=== PATIENT | male | born 1930 | race Caucasian/White ===

== ENCOUNTER 2017-06-11 21:36 | Inpatient (IN) | payer MEDICARE, OTHER ==
[~2017-06-11] VITALS: Ht 170.2 cm; Wt 61.7 kg
[2017-06-11 21:42] VITALS: BP 107/70; PULSE 74; RESP 16; TEMP 98.4; O2SAT 98
--- NOTE | 2017-06-11 21:50 | PD ---
HPI Chief Complaint: head injury Time Seen by Provider: 21:42 Travel History International Travel<30 days: No Contact w/Intl Traveler<30days: No History of Present Illness HPI The patient is an 87 year old male who presents to the [facility] emergency department with a history of reportedly tripping and falling on his back porch and striking his face on a hard object on the ground. He denies having a loss of consciousness. The patient reports having a headache and facial pain. The patient was seen at the emergency department in [place] after this occurred at approximately 5 PM. The patient had a workup done at that facility which revealed a left orbital fracture and an intracranial hemorrhage. The patient was accepted in transfer to this facility by the trauma surgeon, . The patient reports taking an aspirin daily and is also according to the record on Plavix. Otherwise on review of systems, the patient denies having any known recent fevers, cough, congestion, neck pain, chest pain , shortness of breath, abdominal pain, vomiting, diarrhea, urinary symptoms, or other neurologic symptoms. [facility] Past Medical History Narrative Medical The patient's past medical history is significant for coronary artery disease status post 4 prior stents being placed, history of hypothyroid disorder, hyperlipidemia, gout, thoracic aortic aneurysm, recurrent abdominal aortic aneurysm. Past Surgical History Narrative Surgical The patient's past surgical history is significant for jaw surgery related to osteomyelitis as a child, history of an abdominal aortic aneurysm repair, ventral hernia repair. Social History Alcohol Use: No Tobacco Use: No Substance Use: No Allergies-Medications (Allergen,Severity, Reaction): Coded Allergies: No Known Allergies (Unverified , 06/11/17) Reported Meds & Prescriptions Reported Meds & Active Scripts Active Reported Tamsulosin (Tamsulosin HCl) 0.4 Mg Cap 0.4 Mg PO HS Simvastatin 40 Mg Tab 40 Mg PO HS Levothyroxine (Levothyroxine Sodium) 25 Mcg Tab 25 Mcg PO DAILY Clopidogrel (Clopidogrel Bisulfate) 75 Mg Tab 75 Mg PO DAILY Aspirin 81 Mg Chew 81 Mg CHEW DAILY Allopurinol 100 Mg Tab 100 Mg PO DAILY Review of Systems Except as stated in HPI: all other systems reviewed are Neg General / Constitutional: No: Fever Eyes: No: Visual changes HENT: Positive: Headaches, No: Neck Stiffness, Neck Pain Cardiovascular: No: Chest Pain or Discomfort Respiratory: No: Shortness of Breath Gastrointestinal: No: Abdominal Pain Genitourinary: No: Dysuria Musculoskeletal: No: Pain Skin: No Rash Neurologic: Positive: Headache, No: Weakness, Focal Abnormalities, Change in Mentation, Slurred Speech, Sensory Disturbance Psychiatric: No: Depression Endocrine: No: Polydipsia Hematologic/Lymphatic: No: Easy Bruising Physical Exam Narrative General: The patient is a well-developed well-nourished male in no acute distress. Head and Neck exam: Head is has evident trauma with ecchymosis around the left eye and significant swelling noted. There is a bandage over the left restorationist. There is a small wound noted under the bandage that is oozing a small amount of blood. The pressure bandage was reapplied. Eyes: EOMI, pupils are equal round and reactive to light. The patient on examination of the left eye is noted to have a subconjunctival hemorrhage surrounding the eye. No hyphema. The patient has intact vision in the left eye. The patient's eye has to be manually opened elated to the edema. The patient has tenderness on palpation of the orbital bone. There is no crepitus or step-off or increased mobility of the other facial bones. Nose: Midline septum with pink mucous membranes Mouth: Dentition unremarkable. Moist mucus membranes. Posterior oropharynx is not erythematous. No tonsillar hypertrophy. Uvula midline. Airway patent. Neck: No palpable lymphadenopathy. No nuchal rigidity. No thyromegaly. Cardiovascular: Regular rate and rhythm without murmurs, gallops, or rubs. No pulse deficit to the extremities. Lungs: Clear to auscultation bilaterally. No wheezes, rhonchi, or rales. Abdomen: Soft, without tenderness to palpation in all 4 quadrants of the abdomen. No guarding, rebound, or rigidity. Negative [place] sign. Extremities: No clubbing, cyanosis, or edema. 2+ pulses in all 4 extremities. Back: No spinous process tenderness to palpation. No costovertebral angle tenderness to palpation. Neurologic Exam: Cranial nerves 2-12 were intact on exam. Strength is 5/5 in all 4 extremities. No sensory deficits noted. Skin Exam: No rash noted. Intact skin that is warm and dry. Data Data Last Documented VS Vital Signs Date Time Temp Pulse Resp B/P (MAP) Pulse Ox O2 Delivery O2 Flow Rate FiO2 1/23/18 21:42 98.4 74 16 107/70 (82) 98 Orders Orders Admit Order (Ed Use Only) (06/11/17 21:59) Consult Neurosurgery (06/11/17 ) Consult Oral, Facial Surgery (06/11/17 ) MDM Medical Decision Making Medical Screen Exam Complete: Yes Emergency Medical Condition: Yes Medical Record Reviewed: Yes Differential Diagnosis Intracranial hemorrhage, versus facial fracture. Narrative Course During the course of the patients emergency department visit, the patients history, examination, and differential diagnosis were reviewed with the patient. The patient was placed on a cardiac care unit nurse with oximetry and frequent blood pressure monitoring. The patient had IV access obtained and blood work sent for analysis. The patient was provided an update to his tetanus at the other facility. The patients laboratory studies were reviewed from the other facility and remarkable for a white count of 10.9, hemoglobin 13.1, platelets 150 with neutrophils 87.4, lymphocytes 6.7, PT 11.7, INR 1.12, PTT 25.9. Alkaline phosphatase 107, AST 24, ALT 16, total bilirubin 0.5, serum osmolality 286, sodium 146, potassium 4.1, chloride 110, anion gap 12, CO2 24, glucose 111, BUN 23, creatinine 1.1. Radiology studies were reviewed from the other facility and remarkable for a CT scan of the brain that shows scattered subarachnoid hemorrhage, parenchymal hematoma within the left frontal lobe that is approximately 2 x 2 by 1.5 cm. No midline shift or herniation, no acute infarct appreciated area didn't sided tripod fracture noted, chest x-ray shows congestive heart failure with bilateral effusions, no other sequela from trauma left elbow x-ray shows no acute fracture, moderate elbow joint degenerative disease. Maxillofacial CT reveals an impacted left tripod fracture, small subperiosteal hematoma along the lateral wall of the left orbit with mild mass effect upon the intraconal contents. Extensive contusion with hemorrhage within the left face, postsurgical changes with reconstruction of the mandible. The patients results were discussed with the patient, including the plan of care. I explained that further testing and/ or monitoring is indicated based on the patients history, examination, and/ or laboratory findings. Therefore, I recommended admission for additional evaluation. The patient expressed understanding and was agreeable with this plan. The patient was admitted to the hospital in guarded condition and sent to a bed under the care of the trauma surgeon. Physician Communication Physician Communication The patient's case including history, pertinent physical examination findings, and laboratory studies were discussed with Dr. Mosqueda. It was agreed that the patient would be admitted to the trauma service. He requested that I put in a courtesy consultation to the neurosurgeon and the maxillofacial surgeon regarding this patient's injuries. Diagnosis Primary Impression: Intracranial hemorrhage Additional Impressions: Left orbit fracture Subconjunctival hemorrhage of left eye Admitting Information Admitting Physician Requests: Admit Anne Goldsmith MD Jun 11, 2017 21:50
[2017-06-11] MEDS ORDERED: ALLO100T PO (22:37)
[2017-06-11] MEDS ORDERED: LEVO25TA4 PO (22:37)
[2017-06-11] MEDS ORDERED: SIMV40TA PO (22:37)
[2017-06-11] MEDS ORDERED: TAMS0.4C4 PO (22:37)
[2017-06-11] MEDS ORDERED: CLOP75TA PO (22:37)
[2017-06-11] MEDS ORDERED: ASPI-516 CHEW (22:37)
[2017-06-11] MEDS ORDERED: CALC500C16 CHEW (22:37)
[2017-06-12] VITALS (12 sets, daily range): BP systolic 101–112; BP diastolic 55–74; PULSE 66–82; RESP 15–30; TEMP 97.5–98.1; O2SAT 98–100
[2017-06-12] MEDS ORDERED: SODIUM CHLOR 0.9% 1000 ML INJ 1,000 ML IV SCH (02:27)
[2017-06-12] MEDS ORDERED: Post-op Orders (for Pharmacy) XX ONE (02:30)
[2017-06-12] MEDS ORDERED: ONDANSETRON HCL 4 MG/2 ML VIAL IV PUSH PRN (02:30)
[2017-06-12] MEDS ORDERED: oxyCODONE/ACETAMINOPHEN 5 MG/325 MG TAB PO PRN (02:30)
[2017-06-12] MEDS ORDERED: NALOXONE HCL 0.4 MG/ML AMP IV PUSH PRN (02:30)
[2017-06-12] MEDS ORDERED: SODIUM CHLORIDE 0.9% FLUSH 10 ML FLUSH IV FLUSH PRN (02:30)
[2017-06-12] MEDS: LEVOTHYROXINE SODIUM 25 MCG TAB PO SCH (05:15)
[2017-06-12] MEDS: PANTOPRAZOLE SOD 40 MG DELAYED RELEASE TAB PO SCH (05:15)
--- NOTE | 2017-06-12 05:43 | MH ---
cc: MENDOZA WEINSTEIN MD DATE OF ADMISSION: 06/11/[address] Weinstein DIAGNOSIS Fall. Intracranial hemorrhage. HISTORY OF PRESENT DISEASE This 87-year-old gentleman who is awake and alert apparently tripped and fell on his porch striking his face on the ground. He denies losing consciousness, remembers the accident. He was transferred to [facility] around 05:00 p.m. He was worked up there, was found to have orbital fracture and intracranial hemorrhage. We were asked by that hospital to accept the patient which was readily done. The request, however, was made late, about 10 o'clock in the evening. I do not know what they did for five hours over there. PAST MEDICAL HISTORY 1. Coronary artery disease and angioplasty with stent placements about a year ago. 2. Hypothyroidism. 3. Hyperlipidemia. 4. Gout. 5. Thoracic aortic and abdominal aortic aneurysm. SURGICAL HISTORY 1. Abdominal aortic aneurysm repair. 2. Ventral hernia repair. MEDICATIONS Can be found on the record, include - 1. Plavix. 2. Aspirin. 3. Allopurinol. 4. Simvastatin. It should be noted that I am not sure what type of stent the patient had placed, if it was a bare metal stent or coated one. PHYSICAL EXAMINATION GENERAL: An 87-year-old male with in no acute distress. HEAD: Normocephalic. Trauma to the head consisting of periorbital swelling over the left side of the face and some wound noted in the yazidi on the left side. EYES: Pupils equally reactive. Extraocular muscles are intact. Left eye has some subconjunctival hemorrhage. Vision is intact. Hyphema is negative. NOSE: No sign of trauma to the nose. OROPHARYNX: Partially edentulous. NECK: Bilateral carotid pulses. No bruits. No signs of trauma to the neck. CHEST: Bilateral breath sounds. HEART: Regular rhythm. ABDOMEN: Soft. Active bowel sounds. EXTREMITIES: Within normal limits. NEUROLOGIC EXAMINATION: Cranial nerves are normal. Motorically the patient is fully intact. Sensory intact. Alexandra coma scale is 15. IMPRESSION Patient with fall, left-sided facial fractures contained to the zygoma, orbit and intracranial hemorrhage. PLAN The patient will be admitted, watched. Neurosurgeon and Plastic Surgery are consulted. [place] LUNDY/SAMARA /3:23 AM /5:28 AM
--- NOTE | 2017-06-12 09:29 | PD.CONS ---
History of Present Illness Service Neurosurgery Consult Requested By General surgery trauma service Reason for Consult Traumatic brain injury Primary Care Physician Alice Dumont D.O. Diagnoses: History of Present Illness 87-year-old male transferred from [facility] today after presenting there at approximately 5 in the morning following a fall at home. The patient states that he tripped and fell. No definite loss of consciousness prior to or following the fall. No complete or dizziness or vertigo. Mild headache. Moderate left facial pain No blurred vision or diplopia No complaint of significant neck or back pain. No weakness numbness of the extremities. Review of Systems Constitutional: DENIES: Fever, Change in appetite Eyes: DENIES: Blurred vision, Diplopia Ears, nose, mouth, throat: COMPLAINS OF: Hearing loss, DENIES: Vertigo Respiratory: DENIES: Shortness of breath Cardiovascular: DENIES: Chest pain, Palpitations, Syncope Gastrointestinal: DENIES: Abdominal pain, Nausea, Vomiting Musculoskeletal: COMPLAINS OF: Joint pain, Muscle aches, DENIES: Back pain, Neck pain Hematologic/lymphatic: DENIES: Bruising Neurologic: DENIES: Abnormal gait Psychiatric: DENIES: Confusion Past Family Social History Allergies: Coded Allergies: No Known Allergies (Unverified , 06/11/17) Past Medical History Coronary artery disease Lindsay aortic aneurysm Hypothyroidism Dyslipidemia Past Surgical History Coronary stent Aortic aneurysm repair Reported Medications Reported Meds & Active Scripts Active Reported Tamsulosin (Tamsulosin HCl) 0.4 Mg Cap 0.4 Mg PO HS Simvastatin 40 Mg Tab 40 Mg PO HS Levothyroxine (Levothyroxine Sodium) 25 Mcg Tab 25 Mcg PO DAILY Clopidogrel (Clopidogrel Bisulfate) 75 Mg Tab 75 Mg PO DAILY Aspirin 81 Mg Chew 81 Mg CHEW DAILY Allopurinol 100 Mg Tab 100 Mg PO DAILY Family History Negative cardiac, neurologic disease Social History Does not smoke or drink alcohol. Physical Exam Vital Signs Vital Signs Date Time Temp Pulse Resp B/P (MAP) Pulse Ox O2 Delivery O2 Flow Rate FiO2 06/12/17 08:00 73 06/12/17 07:00 99 Room Air 06/12/17 06:00 82 06/12/17 04:00 76 06/12/17 04:00 97.5 76 22 101/65 (77) 99 06/12/17 02:00 80 06/12/17 00:00 76 06/12/17 00:00 97.5 76 15 112/74 (87) 100 06/11/17 21:42 98.4 74 16 107/70 (82) 98 Physical Exam GENERAL: This is a well-nourished, well-developed patient, no apparent distress. SKIN: No abrasions, contusion, rash noted. Skin warm and dry. HEAD: Positive left facial and temporal ecchymosis, small laceration EYES: Sclerae are clear and nonicteric ENT: Ecchymosis over the left side of the face. Left periorbital edema. Mild conjunctival ecchymosis NECK: Trachea midline. No cervical spine tenderness. CARDIOVASCULAR: Regular rate and rhythm without murmurs, gallops, or rubs. RESPIRATORY: Clear to auscultation. Breath sounds equal bilaterally. No wheezes , rales, or rhonchi. GASTROINTESTINAL: Abdomen soft, non-tender, nondistended. No hepato-splenomegaly , or palpable masses. No guarding. MUSCULOSKELETAL: Extremities without cyanosis, or edema. No joint tenderness, or edema noted. No calf tenderness. Dorsalis pedis pulses 2+ bilateral NEUROLOGICAL: Awake and alert Oriented X 3 Speech is clear Conversant and appropriate Follow simple commands well Answers questions appropriately Reasonable judgment and insight Recent and remote memory are intact No evidence of anxiety or depression Pupils are equal and reactive to accommodation. Extra-ocular movements, visual ortega to confrontation, facial sensorimotor, tongue, palate, sternocleidomastoid testing, hearing to finger rub testing, and bilateral shoulder shrug are all intact. Sensation is intact to light touch in all extremities Strength normal major flexion and extension groups all extremities Jennifer's absent bilaterally No ankle clonus Plantar responses absent bilateral Fine motor movements intact upper extremities Laboratory Laboratory Tests Test 06/11/17 23:20 Nasal Screen MRSA (PCR) MRSA NOT DETECTED Imaging Patient's imaging study from [facility] reveals approximately 2 x 4 cm left frontal parenchymal intracranial hemorrhage. No significant mass effect. No skull fracture ,pneumocephalus ,hydrocephalus. Assessment and Plan Assessment and Plan Impression: Traumatic brain injury Left Facial fracture, contusion Plan ISC F/U CT Head Monitor Na+ Ulcer prophylaxis Non- Chemical DVT prophylaxis Jaylen Novak MD Jun 12, 2017 09:29
--- NOTE | 2017-06-12 10:42 | RADRPT ---
EXAM DATE/TIME: 06/12/2017 10:19 [facility] COMPARISON: No previous studies available for comparison. INDICATIONS : Pulmonary effusion. MEDICAL HISTORY : None. SURGICAL HISTORY : None. ENCOUNTER: Initial ACUITY: 1 day PAIN SCORE: 0/10 LOCATION: chest FINDINGS: A single view of the chest demonstrates minimal bibasilar densities. Heart normal in size. Stent cassandra t descending thoracic aorta. Right lung better aerated on current study.. Osseous structures are int act. CONCLUSION: 1. Bibasilar densities likely small pleural effusions and adjacent atelectasis. Frank Hernandez MD on June 12, 2017 at 10:38 Board Certified Radiologist. This report was verified electronically.
[2017-06-12] MEDS: ALLOPURINOL 100 MG TAB PO SCH (10:50)
[2017-06-12] MEDS: levETIRAcetam 500 MG TAB PO SCH ×2 (10:51→20:38)
[2017-06-12] MEDS: DOCUSATE SODIUM 100 MG CAP PO SCH ×2 (11:00→21:00)
[2017-06-12] MEDS: SODIUM CHLORIDE 0.9% FLUSH 10 ML FLUSH IV FLUSH SCH ×2 (11:00→20:38)
--- NOTE | 2017-06-12 12:52 | PD.HHIRBSE ---
Patient History Record/History Review Reason for Referral: The patient is a 87 year old right handed male status post traumatic brain injury secondary to a fall sustained on 06/11/2017. The patient fell at his home , and reported no LOC. Additional injuries included fractured orbit and ICH. Ths patient has a history of CAD, and hypothyroidism. He was GCS of 15 on admission. He is referred for baseline neurobehavioral status examination per trauma protocol to assess cognitive, behavioral and emotional aspects of the injury and to provide treatment recommendations. Past Surgical/Medical History Past Surgery: Yes Major surgery in last 100 days: Unknown Hx Anesthesia Reactions: No Hx Orthopedic Surgery: No Hx Cardiac Surgery: Yes (stent 2016) Hx Chest Surgery: Yes (2004) Hx Abdominal Surgery: Yes (aneurysm (never repaired)) Hx Genitourinary Surgery: No Hx Endocrine Surgery: No Hx Eye Surgery: Yes (L eye) Hx Ear Surgery: No Hx Oral Surgery: Yes (jaw) History of Transplant: No Hx of Neuro Prob: No Hx of Musculoskeletal Pro: Yes (gout) Hx Arthritis: Yes Hx of Cardiovascular Prob: Yes Hypertension (High Blood Press: No Hx Clotting Problems: No Venous Thromboembolism Present: No Hx Chest Pain: No Hx Lightheadedness: No Hx Congestive Heart Failure: No Syncope (Fainting): No Hx of Respiratory Problem: No Hx Snoring: Yes Hx of GI Problems: Yes Hx Heartburn: No Hx Gastroesophageal Reflux: No Hx Hiatal Hernia: No Hx Ulcer: Yes Hx Liver Disease: No Hx Gallbladder Disease: No Hx Inflammatory Bowel Disease: No Hx of Problems: No Hx of Immuno Disor: No Hx of Endocrine Problems: No Hx Thyroid Disease: Yes Hx of Eye Probl: Yes (cataracts removed) Hx of Cataracts: Bilateral Hx of Hearing or Ear Problems: Yes Hard of Hearing: Bilateral Hx Dental Problems: Yes (no teeth or dentures) Hx Psychiatric Problems: No Hx Blood Dyscrasias: No Hx of MDRO: No Hx of MRSA: No Hx of VRE: No Hx of CDIFF: No Hx of Tuberculosis: No If No, Have You Been Exposed W: No Hx of Body/Medical Devices: No Blood Transfusion History Will receive Blood /Blood prod: Yes Hx Blood Transfusions: No Medication Active Medications Allopurinol (Zyloprim) 100 mg DAILY PO Last administered on 06/12/17at 10:50; Admin Dose 100 MG; Start 06/12/17 at 09:00 Docusate Sodium (Colace) 100 mg BID PO Last administered on 06/12/17at 11:00; Admin Dose 100 MG; Start 06/12/17 at 09:00 Levetriacetam (Keppra) 500 mg Q12HR PO Last administered on 06/12/17at 10:51; Admin Dose 500 MG; Start 06/12/17 at 09:00 Levothyroxine Sodium (Synthroid) 25 mcg DAILY@0700 PO Last administered on at 05:15; Admin Dose 25 MCG; Start 06/12/17 at 07:00 Miscellaneous Information (Post-op Orders (for Pharmacy)) STAT ONCE XX; Start 06/12/17 at 02:30; Stop 06/12/17 at 02:52; Status DC Naloxone HCl (Narcan Inj) 0.4 mg UNSCH PRN IV PUSH; Start 06/12/17 at 02:30 Ondansetron HCl (Zofran Inj) 4 mg Q6H PRN IV PUSH; Start 06/12/17 at 02:30 Oxycodone/ Acetaminophen (Percocet 5-325 Mg) 1 tab Q6H PRN PO; Start 06/12/17 at 02:30 Pantoprazole Sodium (Protonix) 40 mg Q24H PO Last administered on 06/12/17at 05: 15; Admin Dose 40 MG; Start 06/12/17 at 06:00 Pravastatin Sodium (Pravachol) 80 mg HS PO; Start 06/12/17 at 21:00 Sodium Chloride 1,000 ml @ 80 mls/hr [id number] IV Last administered on 06/12/17at 02:27; Admin Dose 80 MLS/HR; Start 06/12/17 at 02:27; Stop 06/12/17 at 10:08; Status DC Sodium Chloride (NS Flush) 2 ml BID IV FLUSH Last administered on 06/12/17at 11: 00; Admin Dose 2 ML; Start 06/12/17 at 09:00 Sodium Chloride (NS Flush) 2 ml UNSCH PRN IV FLUSH; Start 06/12/17 at 02:30 Tamsulosin HCl (Flomax) 0.4 mg HS PO; Start 06/12/17 at 21:00 Mental Status Assessment Orientation: oriented to Self, oriented to Place, oriented to Situation, disoriented to Time Mental Status: WFL: Language/Interactions, Problem-Solving, Impaired: Thought processing, Attention, Learning/Memory Observation The patient is alert and oriented to person, place, and circumstances surrounding the reason for hospitalization, but he was off in terms of temporal orientation. In terms of attention skills, the patient was able to remain on task and remember basic but not consistently complex instructions. In terms of memory functioning, the patient was able to demonstrate some carryover of information after a brief period of time. The patient initiated spontaneous conversation. Speech was characterized by adequate prosody, grammar, and articulation, but low volume and slowed rate. Basic naming skills were intact. Language repetition skills were deferred. The patients comprehensions for basic one- and two-stage commands were intact. Basic verbal abstraction and problem-solving skills were deferred. The patient appears to posses some insight and awareness into their situation and within the limits of this brief evaluation, basic judgment. Adjustment/Coping Assessment Adjustment/Coping: Mild: Awareness, Insight Observation The patients thought content was free from suicidal, homicidal or paranoid ideation, and the patients thought processes were bradyphrenic. The patients mood was euthymic, and the affect was stable and appropriate. LTG Status: Deferred STG Status: Deferred Team Members: Neuropsychologist Behavior Assessment Agitation: None Treatment Engagement: Average Observation Behaviorally, the patient demonstrated no signs of agitation, impulsivity or disinhibition. There was no remarkable evidence of a formal thought disorder or psychosis. LTG - Status: Deferred STG Status: Deferred Team Members: Neuropsychologist Diagnosis/Discharge Plan Impression This 87 year old man is s/p complicated mild TBI 2T fall on 06/11/2017. His reports an underlying developing neurocognitive disorder that predated his injury. Diagnosis: (1) Mild major neurocognitive disorder due to traumatic brain injury with behavioral disturbance [facility] Level: :Confused-appropriate Maximizing acute care outcome It is recommended that the patient be monitored for emergent behavioral impulsivity as the medical condition evolves. This patients neuropathological challenges may limit his rehabilitation potential going forward, and these challenges will require specialized therapeutic skills to maximize outcome. At this point in the recovery process, the patient does have basic cognitive capacity as the patient is able to understand a situation and its likely consequences, and he is able to manipulate information rationally. Cognitive capacity will be assessed throughout the recovery process. Discharge Planning Anticipated Problems Ongoing areas of concern will include behavioral impulsivity, lack of insight and judgment, which is expected to improve with time and treatment. Presently , the patient is following multistep commands. Treatment Plan This clinician will continue to follow with you throughout the course of this patients acute care treatment, and I will be available to meet with the patient s family/support system to facilitate their understanding and the ongoing care of their family member. The goals of neuropsychological intervention shall be both educational and supportive to the family/support system as is deemed clinically appropriate. Thank you Thank you for the opportunity to assist in this patients care. Greg Funk, Ph.D., ABPP Board Certified in Clinical Neuropsychology [place] [employer] [place] Licensed Psychologist #[id number] Greg Funk PhD Jun 12, 2017 12:52
--- NOTE | 2017-06-12 12:55 | MB ---
cc: ANN BAHENA DMD DATE OF CONSULTATION 06/12/2017 REASON FOR CONSULTATION Orbital/facial fractures. HISTORY OF PRESENT ILLNESS This is an 87-year-old male who tripped and fell on his porch. I have seen and examined him this morning. His is at bedside. He is alert, awake and oriented x3 in no acute distress. He was transferred to [facility] yesterday evening and then he was transferred over here to [facility]. He was sent up here with a history of having an intracranial hemorrhage an orbital fracture. Denies any fever, chills, nausea, or vomiting, any shortness of breath, any difficulty breathing or swallowing. Denies any visual problems. PAST MEDICAL HISTORY Reports: 1. High cholesterol 2. Hypothyroidism 3. Aortic aneurysm 4. Coronary artery disease PAST SURGICAL HISTORY 1. Angioplasty with stent placement a year ago. 2. Abdominal aortic aneurysm repair MEDICATIONS As per report. 1. Plavix elevator all. 2. Allopurinol 3. Aspirin 4. Simvastatin PHYSICAL EXAM VITAL SIGNS: Temperature 97.6, pulse is 57, respiration rate 24, blood pressure is 111/62 with oxygen saturation of 98. HEAD, EYES, EARS, NOSE, AND THROAT: Pupils equal, round, and reactive to light and accommodation. Extraocular movements are intact. He has left periorbital edema and ecchymosis. I am able to gently open up the eye. Good positive visual acuity. No entrapment noted. He has got some left subconjunctival hemorrhage that is noted. Minimal ecchymosis. Removing the dressing on the left forehead, he has got some abrasions on the temporal region on the left side, but it was hemostatic and stable. Facial bones and nasal bones have been palpated. No crepitus noted. No gross tenderness to palpation. Left-sided V2 paresthesia is noted. Intraorally, no false point of motion of the maxilla or the mandible. Wears dentures. Tissues pink and well-perfused. No active heme that is noted. Positive range of movement of the neck. No tenderness noted. CT scan of the facial bones shows a mildly displaced fracture, with a minimally left CMC fracture, minimally displaced left maxillary sinus fracture, minimally displaced left orbital floor fracture. He also has a remodeling of the left condyle that is noted. Also appears to have some bony fragments/on the right inferior border of the mandible. Many questions about that. The patient's reports that he has had a cartilage/bone transfer when he was at the age of [age]. The mandible is stable. I am able to feel any loose bony pieces. LABORATORY DATA None done in the hospital. IMPRESSION AND PLAN This is an 87-year-old male status post trip and fall with a minimally to mildly displaced left sided zygomatic maxillary complex fracture, maxillary sinus fracture minimally displaced, left orbital floor fracture minimally displaced. Air/fluid in the left maxillary sinus. No surgical intervention needed from oral maxillofacial surgery at this standpoint. Advised the patient to be on sinus precautions, ice to the left side of the face 20 minutes on, 20 minutes off. The patient to follow up in our office in one week, leave the dentures out. He can be on a mechanically soft diet. As far as the right inferior border of the mandible, the right side, the bony segments are the grafting sites of cartilage and bone is stable. Tissues are pink and well-perfused. Intraorally, no infection or anything noted intraorally. No heme noted. No edema noted. The patient is opening and closing his mouth. Good range of movement. No tenderness. No discomfort. At this point, there is no surgical intervention needed. Maxillary is signing off, recall as required. Ann Bahena DMD RRT/ELIANE /11:32 AM /12:27 PM
[2017-06-12] MEDS ORDERED: ACETAMINOPHEN 325 MG TAB PO PRN (13:00)
--- NOTE | 2017-06-12 16:04 | HHI.CCPN ---
Subjective Brief History This 87-year-old gentleman who is awake and alert apparently tripped and fell on his porch striking his face on the ground. He denies losing consciousness, remembers the accident. He was transferred to [facility] around 05:00 p.m. He was worked up there, was found to have orbital fracture and intracranial hemorrhage. We were asked by that hospital to accept the patient which was readily done. The request, however, was made late, about 10 o'clock in the evening. I do not know what they did for [address] scan reveals some interparenchymal hemorrhage the patient is awake alert and neurologically fully intact In addition he has a tripod fracture on the left with swelling of the face 24 Hour Review/Hospital Course 06/12/17 Patient been stable since the arrival He is neurologically fully intact There is no injury to the eye other than some bleeding around the sclera and patient has preserved vision Oral maxillofacial surgery has evaluated the patient and deemed this not to be an operative fracture Neurosurgery consult is greatly appreciated in patient with we will watch carefully Hemodynamically stable Last year patient had 2 cardiac stents placed. I do not know if these a bare metal stents are drug-eluting stents. He is on Plavix and aspirin Current the requirement is that patients with bare metal stents remain on Plavix and aspirin for at least 6 weeks after the procedure and those with the drug-eluting stents for about a year or longer At this point patient is off Plavix and aspirin the face of his intracranial bleed and we have to make certain compromise on this with risk versus benefit from intracranial hemorrhage versus cardiac event And is below point I believe the best way to go is to leave patient off Plavix for about 48-72 hours and then restarted provided that the intracranial hemorrhage is shrinking and improving Abdomen is soft patient's tolerating diet After the CT scan of the brain is repeated will probably transfer patient to the floor provided there is no surprise there Objective Vital Signs Date Time Temp Pulse Resp B/P (MAP) Pulse Ox O2 Delivery O2 Flow Rate FiO2 06/12/17 12:00 68 06/12/17 12:00 98.0 21 110/68 (82) 99 06/12/17 07:00 Room Air Intake and Output 06/12/17 06/12/17 06/13/17 08:00 16:00 00:00 Intake Total 100 ml 662 ml Output Total 200 ml 200 ml Balance -100 ml 462 ml Imaging Last 24 hours Impressions Chest X-Ray 06/12/17 0000 Signed Impressions: Service Date/Time: Monday, June 12, 2017 10:19 - CONCLUSION: 1. Bibasilar densities likely small pleural effusions and adjacent atelectasis. Frank Hernandez MD Exam [employer] He is neurologically fully intact Alexandra Coma Scale is 15 Motoric with patient is fully intact There is no injury to the eye other than some bleeding around the sclera and patient has preserved vision Oral maxillofacial surgery has evaluated the patient and deemed this not to be an operative fracture Neurosurgery consult is greatly appreciated in patient with we will watch carefully Hemodynamic/Cardiac Hemodynamically stable Last year patient had 2 cardiac stents placed. I do not know if these a bare metal stents are drug-eluting stents. He is on Plavix and aspirin Current the requirement is that patients with bare metal stents remain on Plavix and aspirin for at least 6 weeks after the procedure and those with the drug-eluting stents for about a year or longer At this point patient is off Plavix and aspirin the face of his intracranial bleed and we have to make certain compromise on this with risk versus benefit from intracranial hemorrhage versus cardiac event At this point I believe the best way to go is to leave patient off Plavix for about 48-72 hours and then restarted provided that the intracranial hemorrhage is shrinking and improving Pulmonary/Respiratory Bilateral breath sounds with moderate degree of COPD and pulmonary cachexia Patient is clearly in a functional decline at this point despite the fact that he has reached advanced stage and has been functioning very well Abdomen/GI Nutrition Abdomen is soft no injuries noted Renal/I&O Renal function preserved Assessment and Plan Attestation Critical care time 34 minutes Urbano Mosqueda MD Jun 12, 2017 16:04
--- NOTE | 2017-06-12 18:24 | RADRPT ---
EXAM DATE/TIME: 06/12/2017 18:08 [place] COMPARISON: No previous studies available for comparison. INDICATIONS : Evaluate hemorrhage; cephalgia. RADIATION DOSE: 39.95 CTDIvol (mGy) MEDICAL HISTORY : Cardiovascular disease. SURGICAL HISTORY : None. ENCOUNTER: Initial ACUITY: 1 day PAIN SCALE: 3/10 LOCATION: cranial TECHNIQUE: Multiple contiguous axial images were obtained of the head. Using automated exposure control and adj ustment of the mA and/or kV according to patient size, radiation dose was kept as low as reasonably a chievable to obtain optimal diagnostic quality images. DICOM format image data is available electro nically for review and comparison. FINDINGS: There is an outside study from June 11. We had trouble loading the study and I was only able to vi sualize one image. On the current exam is a 4 cm x 2 cm acute hemorrhage in the superior left frontal lobe which I believe is slightly larger than the examination performed yesterday. There is some surr ounding edema and minimal localized mass effect. There is also a small amount of hemorrhage over the left convexity and in the sylvian fissure and a small hemorrhage in the left basal ganglia and left t emporal lobe, subcentimeter. I did not see this area on the previous study. There are fractures of the left maxillary sinus and left zygomatic arch with opacification of the lef t maxillary sinus. Remote fracture left mandibular head. CONCLUSION: 1. 4 cm x 2 cm hemorrhage left frontal lobe probably slightly larger than on June 11. See above di scussion. There is also some hemorrhage over both convexities and in the left sylvian fissure. Probab le small hemorrhage in the left basal ganglia and left temporal lobe, subcentimeter. 2. Left sided facial fractures as above. Ever Parra MD on June 12, 2017 at 18:17 Board Certified Radiologist. This report was verified electronically.
[2017-06-12] MEDS: PRAVASTATIN SOD 40 MG TAB PO SCH (20:38)
[2017-06-12] MEDS: TAMSULOSIN HCL 0.4 MG CAP PO SCH (21:00)
[2017-06-13] VITALS (12 sets, daily range): BP systolic 116–131; BP diastolic 60–76; PULSE 56–109; RESP 16–32; TEMP 97.2–98.7; O2SAT 81–100
[2017-06-13 05:21] LABS: AUTOMATED NEUTROPHIL # 8.4 TH/MM3 (1.8-7.7); BASOPHIL % 0.4 % (0.0-2.0); EOSINOPHIL % 0.4 % (0.0-4.0); HEMATOCRIT 29.9 % (39.0-51.0); HEMOGLOBIN 10.4 GM/DL (13.0-17.0); LYMPH % 9.4 % (9.0-44.0); LYMPHOCYTE # 0.9 TH/MM3 (1.0-4.8); MEAN CELL VOLUME 97.9 FL (80.0-100.0); MEAN CORPUSCULAR HGB CONC 34.7 % (32.0-36.0); MEAN PLATELET VOLUME 8.1 FL (7.0-11.0); MONO % 6.1 % (0.0-8.0); MONOCYTE # 0.6 TH/MM3 (0-0.9); NEUT % 83.7 % (16.0-70.0); PLATELET COUNT 114 TH/MM3 (150-450); RED BLOOD COUNT 3.05 MIL/MM3 (4.50-5.90); RED CELL DISTRIBUTION WIDTH 15.7 % (11.6-17.2)
[2017-06-13 05:44] LABS: BICARBONATE 24.2 MEQ/L (21.0-32.0); CALCIUM 7.8 MG/DL (8.5-10.1); CREATININE 1.12 MG/DL (0.60-1.30)
[2017-06-13] MEDS: PANTOPRAZOLE SOD 40 MG DELAYED RELEASE TAB PO SCH (06:00)
[2017-06-13] MEDS: LEVOTHYROXINE SODIUM 25 MCG TAB PO SCH (06:57)
--- NOTE | 2017-06-13 08:08 | HHI.PR ---
Neuropsych Behavior Behavior: Intact: Impulsive/Agitated Cognitive Cognitive: Mild: Cognitive, Attention/Concentration, Confused/Orientation, Insight/Awareness, Judgement/Problem-Solving, Memory Psychosocial Psychosocial: Intact: Psychosocial, Family/Other Adjustment, Realistic Expectation, Unable to Asses: Self-Esteem/Confidence Progress Notes/Response to Tx Contents of Sessions: Adjustment, Level of Consciousness Time with Patient: 15 minutes Premorbid psychological status Premorbid Cognitive, Emotional and Behavioral Status: Stable. The patient has six years of education and a solid work history prior to this injury. The patient has no prior psychiatric difficulties, as described above. However, there is a concern about an underlying neurocognitive disorder predating his injury. Substance abuse history is unremarkable. Behavioral Reactions of Patient and Family/Support System: Stable. The patient s family is experiencing ongoing issues of adjustment given the nature of the injury, and this aspect of recovery will require ongoing monitoring. Emotional/Behavioral Status of Patient and Family/Support System: Stable. Pertinent issues, if appropriate to this patients clinical care, are described in detail above. Maximizing acute care outcome It is recommended that the patient be monitored for emergent behavioral impulsivity as the medical condition evolves. This patients neuropathological challenges may limit his rehabilitation potential going forward, and these challenges will require specialized therapeutic skills to maximize outcome. At this point in the recovery process, the patient does have basic cognitive capacity as the patient is able to understand a situation and its likely consequences, and he is able to manipulate information rationally. Cognitive capacity will be assessed throughout the recovery process. Anticipated Problems Ongoing areas of concern will include behavioral impulsivity, lack of insight and judgment, which is expected to improve with time and treatment. Presently , the patient is following multistep commands. Treatment Plan This clinician will continue to follow with you throughout the course of this patients acute care treatment, and I will be available to meet with the patient s family/support system to facilitate their understanding and the ongoing care of their family member. The goals of neuropsychological intervention shall be both educational and supportive to the family/support system as is deemed clinically appropriate. [facility] Level: V:Confused-non agitated Impression This 87 year old man is s/p complicated mild TBI 2T fall on 06/11/2017. His reports an underlying developing neurocognitive disorder that predated his injury. Diagnosis: (1) Mild major neurocognitive disorder due to traumatic brain injury with behavioral disturbance Progress Note Narrative Ongoing follow-up of patient seen during daily trauma rounds. This is day 2 post injury. The patient is stable, no neurobehavioral issues. Provided educational information to concerning TBI and subsequent recovery. The patient is [place] I will continue to follow. Greg Funk PhD Jun 13, 2017 8:07 am
[2017-06-13] MEDS: ALLOPURINOL 100 MG TAB PO SCH (08:19)
[2017-06-13] MEDS: SODIUM CHLORIDE 0.9% FLUSH 10 ML FLUSH IV FLUSH SCH ×2 (08:19→20:42)
[2017-06-13] MEDS: DOCUSATE SODIUM 100 MG CAP PO SCH ×2 (08:19→20:42)
[2017-06-13] MEDS: MAGNESIUM HYDROXIDE SUSP 30 ML CUP PO SCH ×2 (09:00→20:34)
--- NOTE | 2017-06-13 10:44 | HHI.NSPN ---
(Kiran Alaniz) History Chief Complaint: Face pain (Kiran Alaniz) Interval History 06/11: Trauma - This 87-year-old gentleman who is awake and alert apparently tripped and fell on his porch striking his face on the ground. He denies losing consciousness, remembers the accident. He was transferred to [facility] around 05:00 p.m. He was worked up there, was found to have orbital fracture and intracranial hemorrhage. We were asked by that hospital to accept the patient which was readily done. 06/12. Evaluated by Dr Novak. Physical Therapy evaluated the patient and recommended Home Health for further therapy and a wheeled walker. Repeat CT brain demonstrated slight increase in the left frontal lobe parenchymal haemorrhage with edema and minimal mass effect. 06/13: When seen the patient is awake and alert this morning and moving all extremities spontaneously. He readily interacts. His muscle strength is good and sensation is intact. He denies any headache or dizziness. He does have some pain to the face. Nursing reports that the patient is doing well and neurologically stable and that Trauma would like to transfer the patient to a regular med/surg floor. (Kiran Alaniz) Exam Results 06/11/17 06/11/17 06/12/17 06/12/17 06/13/17 06/13/17 06:00 18:00 06:00 18:00 06:00 18:00 Intake Total 100 ml 1342 ml 0 ml Output Total 200 ml 500 ml Balance -100 ml 842 ml 0 ml Intake Oral 100 ml 480 ml 0 ml IV Total 862 ml Output Urine Total 200 ml 500 ml # Voids 1 0 # Bowel Movements 0 Vital Signs Date Time Temp Pulse Resp B/P (MAP) Pulse Ox O2 Delivery O2 Flow Rate FiO2 06/13/17 06:00 70 06/13/17 04:00 64 06/13/17 04:00 97.4 64 21 128/60 (82) 81 06/13/17 02:00 68 06/13/17 00:00 97.2 74 32 131/68 (89) 99 06/13/17 00:00 74 06/12/17 22:00 72 06/12/17 20:00 97.6 66 23 109/61 (77) 99 06/12/17 20:00 66 06/12/17 19:00 99 Room Air 06/12/17 18:00 70 06/12/17 16:00 98.1 74 30 107/55 (72) 98 06/12/17 16:00 76 06/12/17 14:00 75 06/12/17 12:00 68 06/12/17 12:00 98.0 68 21 110/68 (82) 99 06/12/17 10:00 67 06/12/17 08:00 73 06/12/17 08:00 97.6 76 24 111/62 (78) 98 06/12/17 07:00 99 Room Air 06/12/17 06:00 82 06/12/17 04:00 76 06/12/17 04:00 97.5 76 22 101/65 (77) 99 06/12/17 02:00 80 06/12/17 00:00 76 06/12/17 00:00 97.5 76 15 112/74 (87) 100 06/11/17 21:42 98.4 74 16 107/70 (82) 98 (Kiran Alaniz) Physical Examination GENERAL: Awake & alert, readily interacts, affect neutral, no apparent distress. HEENT: Left-sided facial swelling & ecchymosis w/lateral orbit skin avulsion and small supraorbital laceration. PERRLA 2 mm brisk, EOMI, left subconjunctival haemorrhage to entire globe. No otorrhea or rhinorrhea. MMM & pink, tongue midline to protrusion. MUSCULOSKELETAL: SAINZ extremities spontaneously, no evident clubbing or deformity. Dressings to bilateral forearms intact. NEUROLOGICAL: Awake & alert, oriented to person, being in hospital, year & president. Speech soft & essentially clear. Follows commands w/o difficulty. CN II-XII appear grossly intact. Sensation intact to light touch to all extremities. Muscle strength is 4+ to 5/ to all major flexion & extension muscle groups. (Kiran Alaniz) Physical Examination NEUROLOGICAL: Awake & alert, oriented to person, being in hospital, year & president. Speech soft & essentially clear. Follows commands w/o difficulty. CN II-XII appear grossly intact. Sensation intact to light touch to all extremities. Muscle strength is 4+ to 5/ to all major flexion & extension muscle groups.\\ Lungs clear Heart regular rythm and rate Skin warm and drt (Luan Riddle MD) Lab, Micro, Other Results Recent Impressions Head CT 06/12/17 0000 Signed Impressions: Service Date/Time: Monday, June 12, 2017 18:08 - CONCLUSION: 1. 4 cm x 2 cm hemorrhage left frontal lobe probably slightly larger than on June 11. See above discussion. There is also some hemorrhage over both convexities and in the left sylvian fissure. Probable small hemorrhage in the left basal ganglia and left temporal lobe, subcentimeter. 2. Left sided facial fractures as above. Ever Parra MD Chest X-Ray 06/12/17 0000 Signed Impressions: Service Date/Time: Monday, June 12, 2017 10:19 - CONCLUSION: 1. Bibasilar densities likely small pleural effusions and adjacent atelectasis. Frank Hernandez MD Laboratory Tests Test 06/11/17 23:20 06/13/17 03:45 Nasal Screen MRSA (PCR) MRSA NOT DETECTED White Blood Count 10.0 TH/MM3 Red Blood Count 3.05 MIL/MM3 Hemoglobin 10.4 GM/DL Hematocrit 29.9 % Mean Corpuscular Volume 97.9 FL Mean Corpuscular Hemoglobin 34.0 PG Mean Corpuscular Hemoglobin Concent 34.7 % Red Cell Distribution Width 15.7 % Platelet Count 114 TH/MM3 Mean Platelet Volume 8.1 FL Neutrophils (%) (Auto) 83.7 % Lymphocytes (%) (Auto) 9.4 % Monocytes (%) (Auto) 6.1 % Eosinophils (%) (Auto) 0.4 % Basophils (%) (Auto) 0.4 % Neutrophils # (Auto) 8.4 TH/MM3 Lymphocytes # (Auto) 0.9 TH/MM3 Monocytes # (Auto) 0.6 TH/MM3 Eosinophils # (Auto) 0.0 TH/MM3 Basophils # (Auto) 0.0 TH/MM3 CBC Comment AUTO DIFF Differential Comment AUTO DIFF CONFIRMED Platelet Estimate LOW Platelet Morphology Comment ENLARGED Blood Urea Nitrogen 23 MG/DL Creatinine 1.12 MG/DL Random Glucose 111 MG/DL Calcium Level 7.8 MG/DL Sodium Level 144 MEQ/L Potassium Level 4.2 MEQ/L Chloride Level 112 MEQ/L Carbon Dioxide Level 24.2 MEQ/L Anion Gap 8 MEQ/L Estimat Glomerular Filtration Rate 62 ML/MIN (Kiran Alaniz) Lab, Micro, Other Results Current Medications Sodium Chloride 1,000 ml @ 80 mls/hr [id number] IV Last administered on at 02:27; Start 06/12/17 at 02:27; Stop 06/12/17 at 10:08; Status DC Sodium Chloride (NS Flush) 2 ml UNSCH PRN IV FLUSH FLUSH AFTER USING IV ACCESS ; Start 06/12/17 at 02:30; Stop 06/16/17 at 11:13; Status DC Sodium Chloride (NS Flush) 2 ml BID IV FLUSH Last administered on 06/16/17at 08: 15; Start 06/12/17 at 09:00; Stop 06/16/17 at 11:13; Status DC Ondansetron HCl (Zofran Inj) 4 mg Q6H PRN IV PUSH NAUSEA OR VOMITING Last administered on 06/13/17at 15:49; Start 06/12/17 at 02:30; Stop 06/16/17 at 11:13 ; Status DC Pantoprazole Sodium (Protonix) 40 mg Q24H PO Last administered on 06/16/17at 05: 56; Start 06/12/17 at 06:00; Stop 06/16/17 at 11:13; Status DC Docusate Sodium (Colace) 100 mg BID PO Last administered on 06/16/17at 08:15; Start 06/12/17 at 09:00; Stop 06/16/17 at 11:13; Status DC Miscellaneous Information (Post-op Orders (for Pharmacy)) STAT ONCE XX ; Start 06/12/17 at 02:30; Stop 06/12/17 at 02:52; Status DC Oxycodone/ Acetaminophen (Percocet 5-325 Mg) 1 tab Q6H PRN PO PAIN SCALE 6-10 Last administered on 06/13/17at 08:19; Start 06/12/17 at 02:30; Stop 06/16/17 at 11:13; Status DC Naloxone HCl (Narcan Inj) 0.4 mg UNSCH PRN IV PUSH SEE LABEL COMMENTS; Start at 02:30; Stop 06/16/17 at 11:13; Status DC Levetriacetam (Keppra) 500 mg Q12HR PO Last administered on 06/12/17at 20:38; Start 06/12/17 at 09:00; Stop 06/13/17 at 09:50; Status DC Allopurinol (Zyloprim) 100 mg DAILY PO Last administered on 06/16/17at 08:15; Start 06/12/17 at 09:00; Stop 06/16/17 at 11:13; Status DC Levothyroxine Sodium (Synthroid) 25 mcg DAILY@0700 PO Last administered on 06/16at 05:56; Start 06/12/17 at 07:00; Stop 06/16/17 at 11:13; Status DC Tamsulosin HCl (Flomax) 0.4 mg HS PO Last administered on 06/15/17at 20:36; Start 06/12/17 at 21:00; Stop 06/16/17 at 11:13; Status DC Pravastatin Sodium (Pravachol) 80 mg HS PO Last administered on 06/15/17at 20:36 ; Start 06/12/17 at 21:00; Stop 06/16/17 at 11:13; Status DC Acetaminophen (Tylenol) 650 mg Q4H PRN PO Pain 1-5 Last administered on at 09:44; Start 06/12/17 at 13:00; Stop 06/16/17 at 11:13; Status DC Magnesium Hydroxide (Milk Of Magnesia Liq) 30 ml BID PO Last administered on at 20:36; Start 06/13/17 at 09:00; Stop 06/16/17 at 11:13; Status DC Levetriacetam (Keppra Liq) 500 mg Q12HR NG Last administered on 06/16/17at 08: 15; Start 06/13/17 at 10:00; Stop 06/16/17 at 11:13; Status DC Sodium Chloride 1,000 ml @ 40 mls/hr Q24H IV Last administered on 06/14/17at 10 :56; Start 06/13/17 at 10:00; Stop 06/16/17 at 11:13; Status DC Lactulose (Lactulose Liq) 30 ml DAILY PO Last administered on 06/15/17at 09:31; Start 06/14/17 at 09:00; Stop 06/16/17 at 11:13; Status DC (Luan Riddle MD) Medical Decision Making Impression and Plan Impression: S/P fall Traumatic brain injury Left-sided facial fractures The patient is doing well today and is neurologically stable. Reviewed labs for today. Anaemia & thrombocytopenia most likely a result of IV fluids. Sodium level 144. Decreased eGFR. CT brain with slightly increased left frontal lobe parenchymal haemorrhage w/edema & minimal mass effect. There is also some haemorrhage to the left convexity & sylvian fissure as well as to the left basal ganglia and left temporal lobe. Multiple left-sided facial fractures. Physical Therapy recommends Home Health Care for further therapy and a wheeled walker. Plan: Primary management per Trauma. Neuro checks. Stat CT brain for any decline in neuro status. Monitor sodium level. Mechanical DVT prophylaxis. Hold pharmacologic DVT prophylaxis. Stress ulcer prophylaxis. CT brain w/o contrast now. ADDENDUM at 1609: This practitioner independently reviewed the CT brain images from today and compared them with those from and concur with the Radiologist's findings that the haemorrahges are stable and that there are no new haemorrhages noted. From Neurosurgery's perspective the patient may transfer to a regular med/surg floor. (Kiran Alaniz) Impression and Plan (Luan Riddle MD) Attending Statement I reviewed his follow up CT of the brain. Continue nonoperative treatment Pulmonary. Continue aggressive pulmonary toilette, nasotracheal suction, and breathing treatments with nebulizers. Nutrition. Oral diet Renal. monitor closely urine output, BUN and creatinine Endocrine. Monitor serial Acu checks and SSI as needed in detail ID monitor for signs of infection Protonix for stress ulcer prophylaxis The exam, history, and the medical decision-making described in the above note were completed with the assistance of the mid-level provider. I reviewed and agree with the findings presented. I attest that I had a [id number] encounter with the patient on the same day, and personally performed and documented my assessment and findings in the medical record. (Luan Riddle MD) Kiran Alaniz Jun 13, 2017 10:44 Luan Riddle MD Jun 16, 2017 18:11
--- NOTE | 2017-06-13 11:36 | RADRPT ---
EXAM DATE/TIME: 06/13/2017 11:12 [place] COMPARISON: CT BRAIN W/O CONTRAST, June 12, 2017, 18:08. INDICATIONS : Evaluate intracerebral hemorrhage RADIATION DOSE: 56.35 CTDIvol (mGy) MEDICAL HISTORY : Cardiovascular disease. SURGICAL HISTORY : None. ENCOUNTER: Initial ACUITY: 1 day PAIN SCALE: 5/10 LOCATION: cranial TECHNIQUE: Multiple contiguous axial images were obtained of the head. Using automated exposure control and adj ustment of the mA and/or kV according to patient size, radiation dose was kept as low as reasonably a chievable to obtain optimal diagnostic quality images. DICOM format image data is available electro nically for review and comparison. FINDINGS: Overall the appearance is stable. Again seen is a dominant intraparenchymal bleed involving the left frontal lobe near the vertex. This measures 4.5 x 2.0 cm. A few take into account the difference in t he plane through the hemorrhage between the 2 studies the hemorrhage is unchanged. Intravertebral hem orrhage seen involving the insular cortex on the left is tiny measuring less than 1 cm. Small subdura l hemorrhage overlying the right temporal lobe. Small subarachnoid hemorrhage involving the sylvian f issure on the left as well as overlying the right frontal lobe. No new site of hemorrhage observed. T here remains mild edema associated with the left frontal hemorrhage. No midline shift or herniation. Underlying atrophy and chronic small vessel ischemic change noted. Fluid within the left maxillary si nus and trauma to the left zygomatic arch and left orbital rim previously described. CONCLUSION: 1. Stable exam with areas of intraparenchymal, subarachnoid, and subdural hemorrhage. No new source o f hemorrhage. No mass effect. Jose Keane Jr., MD on June 13, 2017 at 11:29 Board Certified Radiologist. This report was verified electronically.
[2017-06-13] MEDS: SODIUM CHLOR 0.9% 1000 ML INJ 1,000 ML IV SCH (12:01)
[2017-06-13] MEDS: levETIRAcetam 500 MG/5 ML UDC NG SCH ×2 (12:01→20:42)
--- NOTE | 2017-06-13 18:14 | HHI.CCPN ---
Subjective Brief History This 87-year-old gentleman who is awake and alert apparently tripped and fell on his porch striking his face on the ground. He denies losing consciousness, remembers the accident. He was transferred to [facility] around 05:00 p.m. He was worked up there, was found to have orbital fracture and intracranial hemorrhage. We were asked by that hospital to accept the patient which was readily done. The request, however, was made late, about 10 o'clock in the evening. I do not know what they did for [address] scan reveals some interparenchymal hemorrhage the patient is awake alert and neurologically fully intact In addition he has a tripod fracture on the left with swelling of the face 24 Hour Review/Hospital Course 06/12/17 Patient been stable since the arrival He is neurologically fully intact There is no injury to the eye other than some bleeding around the sclera and patient has preserved vision Oral maxillofacial surgery has evaluated the patient and deemed this not to be an operative fracture Neurosurgery consult is greatly appreciated in patient with we will watch carefully Hemodynamically stable Last year patient had 2 cardiac stents placed. I do not know if these a bare metal stents are drug-eluting stents. He is on Plavix and aspirin Current the requirement is that patients with bare metal stents remain on Plavix and aspirin for at least 6 weeks after the procedure and those with the drug-eluting stents for about a year or longer At this point patient is off Plavix and aspirin the face of his intracranial bleed and we have to make certain compromise on this with risk versus benefit from intracranial hemorrhage versus cardiac event And is below point I believe the best way to go is to leave patient off Plavix for about 48-72 hours and then restarted provided that the intracranial hemorrhage is shrinking and improving Abdomen is soft patient's tolerating diet After the CT scan of the brain is repeated will probably transfer patient to the floor provided there is no surprise there 06/13/17 Patient doing well at this time He is awake alert and oriented Swelling and bruising of the left side of face is slowly decreasing. Patient able to open left eye and according to him vision is not impaired Neurologically fully intact Repeat CT scan of the brain reveals some extra cerebral blood right and left subdural Hemodynamically stable Patient has a as above noted drug eluding stents but has been on Plavix and aspirin for year and I agree fully with consultation of model home sales greeter Dr. Solis the patient does not require anymore Plavix or aspirin When everything is done and over with, he should be probably placed on back on aspirin for other cardiac reasons like precaution and prevention but he will not need Plavix Dr. Solis's consult is greatly appreciated Abdomen soft active bowel sounds Extremities well-perfused Patient to be transferred to floor today Objective Vital Signs Date Time Temp Pulse Resp B/P (MAP) Pulse Ox O2 Delivery O2 Flow Rate FiO2 06/13/17 16:00 109 06/13/17 16:00 98.7 16 127/60 (82) 99 06/13/17 07:00 Room Air Intake and Output 06/13/17 06/13/17 06/14/17 08:00 16:00 00:00 Intake Total 0 ml Balance 0 ml Result Diagram: 06/13/17 0345 06/13/17 0345 Imaging Last [address] 06/13/17 1017 Signed Impressions: Service Date/Time: May 11:12 - CONCLUSION: 1. Stable exam with areas of intraparenchymal, subarachnoid, and subdural hemorrhage. No new source of hemorrhage. No mass effect. Jose Keane Jr., MD Assessment and Plan Attestation Critical care 32 minutes Urbano Mosqueda MD Jun 13, 2017 18:14
[2017-06-13] MEDS: PRAVASTATIN SOD 40 MG TAB PO SCH (20:41)
[2017-06-13] MEDS: TAMSULOSIN HCL 0.4 MG CAP PO SCH (20:42)
[2017-06-14] VITALS (9 sets, daily range): BP systolic 103–130; BP diastolic 55–69; PULSE 70–88; RESP 15–29; TEMP 97.1–99.5; O2SAT 97–100
--- NOTE | 2017-06-14 00:02 | EKG ---
Date Performed: 06/12/2017 Time Performed: 13:30:57 PTAGE: 87 years EKG: ATRIAL FIBRILLATION LOW QRS VOLTAGE IN EXTREMITY LEADS NONSPECIFIC T-WAVE ABNORMALITY ABNOR MAL RHYTHM ECG NO PREVIOUS TRACING DOCTOR: Benoit Blake Interpretating Date/Time 06/14/2017 00:01:17
[2017-06-14 04:20] LABS: AUTOMATED NEUTROPHIL # 7.4 TH/MM3 (1.8-7.7); BASOPHIL # 0.1 TH/MM3 (0-0.2); BASOPHIL % 0.6 % (0.0-2.0); EOSINOPHIL # 0.1 TH/MM3 (0-0.4); EOSINOPHIL % 0.9 % (0.0-4.0); HEMATOCRIT 26.5 % (39.0-51.0); LYMPH % 11.3 % (9.0-44.0); LYMPHOCYTE # 1.1 TH/MM3 (1.0-4.8); MEAN CELL VOLUME 98.4 FL (80.0-100.0); MEAN CORPUSCULAR HEMOGLOBIN 33.6 PG (27.0-34.0); MEAN CORPUSCULAR HGB CONC 34.2 % (32.0-36.0); MONO % 9.3 % (0.0-8.0); MONOCYTE # 0.9 TH/MM3 (0-0.9); NEUT % 77.9 % (16.0-70.0); PLATELET COUNT 125 TH/MM3 (150-450); RED BLOOD COUNT 2.69 MIL/MM3 (4.50-5.90); RED CELL DISTRIBUTION WIDTH 15.6 % (11.6-17.2); WHITE BLOOD COUNT 9.5 TH/MM3 (4.0-11.0)
[2017-06-14 05:07] LABS: ALBUMIN 2.5 GM/DL (3.4-5.0); BICARBONATE 23.1 MEQ/L (21.0-32.0); CALCIUM 7.4 MG/DL (8.5-10.1); CALCIUM-PROTEIN CORRECTED 8.3 MG/DL (8.5-10.1); CREATININE 1.13 MG/DL (0.60-1.30); TOTAL BILIRUBIN ADULT 0.5 MG/DL (0.2-1.0); TOTAL PROTEIN 5.4 GM/DL (6.4-8.2)
[2017-06-14] MEDS: PANTOPRAZOLE SOD 40 MG DELAYED RELEASE TAB PO SCH (06:00)
[2017-06-14] MEDS: LEVOTHYROXINE SODIUM 25 MCG TAB PO SCH (06:02)
--- NOTE | 2017-06-14 06:11 | MB ---
cc: HARIS BECKHAM DATE OF CONSULTATION 06/13/2017 HISTORY OF PRESENT ILLNESS Mr. Rivera is an 87-year-old white male with history of coronary artery disease, coronary stenting one year ago, thoracic aortic and abdominal aneurysm and frequent falls. He was coming back from his porch, tripped and fell on his head. He was found to have left orbit fracture and intracranial hemorrhage. He has been on Plavix and aspirin which has been discontinued. He denies any chest pain or shortness of breath. PAST MEDICAL HISTORY Positive for - 1. Coronary artery disease, coronary stenting one year ago by Dr. Heath. 2. History of thoracic, aortic and abdominal aortic aneurysm. 3. Dyslipidemia. 4. Hypothyroidism. 5. Gout. MEDICATIONS 1. Simvastatin. 2. Allopurinol. 3. Aspirin. 4. Plavix. ALLERGIES None. SOCIAL HISTORY The patient does not smoke but used to smoke in the past. He does not drink alcohol excessively. FAMILY HISTORY Negative for heart disease. REVIEW OF SYSTEMS Otherwise negative. PHYSICAL EXAMINATION VITAL SIGNS: Blood pressure 127/60, pulse 109 and irregular. HEENT: Negative. NECK: 2+ carotid upstrokes. No bruits. LUNGS: Clear. HEART: Irregularly irregular with no murmur or gallop. ABDOMEN: Soft in no bruits. EXTREMITIES: Without edema. 1+ distal pulses. NEUROLOGIC: Exam is grossly nonfocal. The patient has left facial bruising and periorbital swelling. EKG was reviewed and showed an atrial fibrillation with controlled ventricular response, nonspecific T-wave changes. LABORATORY DATA Hemoglobin 10.4, potassium 4.2, creatinine 1.1. IMAGING STUDIES Head CT showed intraparenchymal, subarachnoid and subdural hemorrhage which has been stable. DIAGNOSES 1. Recent fall with head injury. 2. Intracranial hemorrhage. 3. Coronary artery disease with a history of cardiac stenting one year ago. 4. Dyslipidemia. 5. Aortic aneurysm, status post abdominal aortic aneurysm repair. DISPOSITION 1. Mr. Rivera will be monitored in the ICU. 2. I recommend to stay off of Plavix and aspirin. His last stent was one year ago and at this time the risk for stent thrombosis is very low. 3. The patient also will need anticoagulation for his atrial fibrillation in the future. 4. Once he is cleared by Neurosurgery, he can discuss this with his primary activity therapist, Dr. Heath. He will likely need to go back on baby aspirin and start full dose anticoagulation with a novel anticoagulant but will stay off Plavix long-term. The plan was discussed with the patient and his , and they understand the situation. I recommend to continue modification of his cardiac risk factors. MD NISREEN See/SSB /5:20 PM /5:53 AM ROCAEL
--- NOTE | 2017-06-14 08:12 | HHI.PR ---
Neuropsych Cognitive Cognitive: Mild: Cognitive, Attention/Concentration, Confused/Orientation, Insight/Awareness, Judgement/Problem-Solving, Memory Psychosocial Psychosocial: Intact: Psychosocial, Family/Other Adjustment, Realistic Expectation, Unable to Asses: Self-Esteem/Confidence Progress Notes/Response to Tx Contents of Sessions: Adjustment Time with Patient: 15 minutes Premorbid psychological status Premorbid Cognitive, Emotional and Behavioral Status: Stable. The patient has six years of education and a solid work history prior to this injury. The patient has no prior psychiatric difficulties, as described above. However, there is a concern about an underlying neurocognitive disorder predating his injury. Substance abuse history is unremarkable. Behavioral Reactions of Patient and Family/Support System: Stable. The patient s family is experiencing ongoing issues of adjustment given the nature of the injury, and this aspect of recovery will require ongoing monitoring. Emotional/Behavioral Status of Patient and Family/Support System: Stable. Pertinent issues, if appropriate to this patients clinical care, are described in detail above. Maximizing acute care outcome It is recommended that the patient be monitored for emergent behavioral impulsivity as the medical condition evolves. This patients neuropathological challenges may limit his rehabilitation potential going forward, and these challenges will require specialized therapeutic skills to maximize outcome. At this point in the recovery process, the patient does have basic cognitive capacity as the patient is able to understand a situation and its likely consequences, and he is able to manipulate information rationally. Cognitive capacity will be assessed throughout the recovery process. Anticipated Problems Ongoing areas of concern will include behavioral impulsivity, lack of insight and judgment, which is expected to improve with time and treatment. Presently , the patient is following multistep commands. Treatment Plan This clinician will continue to follow with you throughout the course of this patients acute care treatment, and I will be available to meet with the patient s family/support system to facilitate their understanding and the ongoing care of their family member. The goals of neuropsychological intervention shall be both educational and supportive to the family/support system as is deemed clinically appropriate. [facility] Hospital Level: V:Confused-non agitated Impression This 87 year old man is s/p complicated mild TBI 2T fall on 06/11/2017. His reports an underlying developing neurocognitive disorder that predated his injury. Diagnosis: (1) Mild major neurocognitive disorder due to traumatic brain injury with behavioral disturbance Progress Note Narrative This is day 3 post injury. The patient is neurobehaviorally stable. Appears at [facility] To transfer to the floor. I will continue to follow. Greg Funk PhD Jun 14, 2017 8:12 am
[2017-06-14] MEDS: MAGNESIUM HYDROXIDE SUSP 30 ML CUP PO SCH ×2 (09:00→20:36)
[2017-06-14] MEDS: SODIUM CHLORIDE 0.9% FLUSH 10 ML FLUSH IV FLUSH SCH ×2 (09:00→20:37)
[2017-06-14] MEDS: LACTULOSE SYRUP 20 GM/30 ML CUP PO SCH (09:00)
[2017-06-14] MEDS: SODIUM CHLOR 0.9% 1000 ML INJ 1,000 ML IV SCH (10:56)
[2017-06-14] MEDS: levETIRAcetam 500 MG/5 ML UDC NG SCH ×2 (10:56→20:36)
[2017-06-14] MEDS: DOCUSATE SODIUM 100 MG CAP PO SCH ×2 (10:56→20:37)
[2017-06-14] MEDS: ALLOPURINOL 100 MG TAB PO SCH (10:56)
--- NOTE | 2017-06-14 12:21 | HHI.NSPN ---
(Kiran Alaniz) History Chief Complaint: None (KattyKiran QUARLES) Interval History 06/11: Trauma - This 87-year-old gentleman who is awake and alert apparently tripped and fell on his porch striking his face on the ground. He denies losing consciousness, remembers the accident. He was transferred to [facility] around 05:00 p.m. He was worked up there, was found to have orbital fracture and intracranial hemorrhage. We were asked by that hospital to accept the patient which was readily done. 06/12. Evaluated by Dr Novak. Physical Therapy evaluated the patient and recommended Home Health for further therapy and a wheeled walker. Repeat CT brain demonstrated slight increase in the left frontal lobe parenchymal haemorrhage with edema and minimal mass effect. 06/13: When seen the patient is awake and alert this morning and moving all extremities spontaneously. He readily interacts. His muscle strength is good and sensation is intact. He denies any headache or dizziness. He does have some pain to the face. Nursing reports that the patient is doing well and neurologically stable and that Trauma would like to transfer the patient to a regular med/surg floor. 06/14: This morning the patient is awake and sitting in the chair watching TV and visiting with his . He had no complaints. He denied any headache or dizziness. He is essentially stable neurologically. His did say he had dementia prior to his admission. (KattyKiran QUARLES) Exam Results 06/12/17 06/12/17 06/13/17 06/13/17 06/14/17 06/14/17 06:00 18:00 06:00 18:00 06:00 18:00 Intake Total 100 ml 1342 ml 0 ml 335 ml 780 ml Output Total 200 ml 500 ml 200 ml 350 ml Balance -100 ml 842 ml 0 ml 135 ml 430 ml Intake Oral 100 ml 480 ml 0 ml 100 ml 100 ml IV Total 862 ml 235 ml 680 ml Output Urine Total 200 ml 500 ml 200 ml 350 ml # Voids 1 0 4 2 # Bowel Movements 0 0 0 Vital Signs Date Time Temp Pulse Resp B/P (MAP) Pulse Ox O2 Delivery O2 Flow Rate FiO2 06/14/17 07:00 Room Air 06/14/17 06:00 74 06/14/17 04:00 98.0 74 15 115/59 (77) 100 06/14/17 04:00 74 06/14/17 02:00 76 06/14/17 00:00 70 06/14/17 00:00 97.8 70 24 106/58 (74) 100 06/13/17 22:00 68 06/13/17 20:00 68 06/13/17 20:00 97.8 68 16 116/73 (87) 100 06/13/17 19:00 99 Room Air 06/13/17 18:00 74 06/13/17 16:00 109 06/13/17 16:00 98.7 109 16 127/60 (82) 99 06/13/17 14:00 62 06/13/17 12:00 97.7 73 19 119/66 (83) 98 06/13/17 12:00 56 06/13/17 10:00 56 06/13/17 08:00 72 06/13/17 08:00 97.6 72 21 123/76 (92) 100 06/13/17 07:00 100 Room Air 06/13/17 06:00 70 06/13/17 04:00 64 06/13/17 04:00 97.4 64 21 128/60 (82) 81 06/13/17 02:00 68 06/13/17 00:00 97.2 74 32 131/68 (89) 99 06/13/17 00:00 74 06/12/17 22:00 72 06/12/17 20:00 97.6 66 23 109/61 (77) 99 06/12/17 20:00 66 06/12/17 19:00 99 Room Air 06/12/17 18:00 70 06/12/17 16:00 98.1 74 30 107/55 (72) 98 06/12/17 16:00 76 06/12/17 14:00 75 06/12/17 12:00 68 06/12/17 12:00 98.0 68 21 110/68 (82) 99 06/12/17 10:00 67 06/12/17 08:00 73 06/12/17 08:00 97.6 76 24 111/62 (78) 98 06/12/17 07:00 99 Room Air 06/12/17 06:00 82 06/12/17 04:00 76 06/12/17 04:00 97.5 76 22 101/65 (77) 99 06/12/17 02:00 80 06/12/17 00:00 76 06/12/17 00:00 97.5 76 15 112/74 (87) 100 06/11/17 21:42 98.4 74 16 107/70 (82) 98 (Kiran lAaniz) Physical Examination GENERAL: Awake & alert, sitting in chair watching TV and visiting w/. Readily interacts. Affect neutral. No apparent distress. HEENT: Left-sided facial swelling & ecchymosis w/lateral orbit skin avulsion and small supraorbital laceration. PERRLA 2 mm brisk, EOMI, left subconjunctival haemorrhage to entire globe. No otorrhea or rhinorrhea. MMM & pink, tongue midline to protrusion. MUSCULOSKELETAL: SAINZ extremities spontaneously, no evident clubbing or deformity. Dressings to bilateral forearms intact. NEUROLOGICAL: Awake & alert, oriented to person, being in hospital, month & president. When asked name of hospital he was able to get if off this practitioner's lab coat. He was confused as to year. Speech soft & essentially clear. Follows commands fairly well. CN II-XII appear grossly intact. Sensation intact to light touch to all extremities. Muscle strength is 4 to 5/5 to all major flexion & extension muscle groups. (Kiran Alaniz) Lab, Micro, Other Results Recent Impressions Head CT 06/13/17 1017 Signed Impressions: Service Date/Time: May 11:12 - CONCLUSION: 1. Stable exam with areas of intraparenchymal, subarachnoid, and subdural hemorrhage. No new source of hemorrhage. No mass effect. Jose Keane Jr., MD Head CT 06/12/17 0000 Signed Impressions: Service Date/Time: Monday, June 12, 2017 18:08 - CONCLUSION: 1. 4 cm x 2 cm hemorrhage left frontal lobe probably slightly larger than on June 11. See above discussion. There is also some hemorrhage over both convexities and in the left sylvian fissure. Probable small hemorrhage in the left basal ganglia and left temporal lobe, subcentimeter. 2. Left sided facial fractures as above. Ever Parra MD Chest X-Ray 06/12/17 0000 Signed Impressions: Service Date/Time: Monday, June 12, 2017 10:19 - CONCLUSION: 1. Bibasilar densities likely small pleural effusions and adjacent atelectasis. Frank Hernandez MD Laboratory Tests Test 06/11/17 23:20 06/13/17 03:45 06/14/17 03:29 Nasal Screen MRSA (PCR) MRSA NOT DETECTED White Blood Count 10.0 TH/MM3 9.5 TH/MM3 Red Blood Count 3.05 MIL/MM3 2.69 MIL/MM3 Hemoglobin 10.4 GM/DL 9.0 GM/DL Hematocrit 29.9 % 26.5 % Mean Corpuscular Volume 97.9 FL 98.4 FL Mean Corpuscular Hemoglobin 34.0 PG 33.6 PG Mean Corpuscular Hemoglobin Concent 34.7 % 34.2 % Red Cell Distribution Width 15.7 % 15.6 % Platelet Count 114 TH/MM3 125 TH/MM3 Mean Platelet Volume 8.1 FL 8.0 FL Neutrophils (%) (Auto) 83.7 % 77.9 % Lymphocytes (%) (Auto) 9.4 % 11.3 % Monocytes (%) (Auto) 6.1 % 9.3 % Eosinophils (%) (Auto) 0.4 % 0.9 % Basophils (%) (Auto) 0.4 % 0.6 % Neutrophils # (Auto) 8.4 TH/MM3 7.4 TH/MM3 Lymphocytes # (Auto) 0.9 TH/MM3 1.1 TH/MM3 Monocytes # (Auto) 0.6 TH/MM3 0.9 TH/MM3 Eosinophils # (Auto) 0.0 TH/MM3 0.1 TH/MM3 Basophils # (Auto) 0.0 TH/MM3 0.1 TH/MM3 CBC Comment AUTO DIFF DIFF FINAL Differential Comment AUTO DIFF CONFIRMED Platelet Estimate LOW Platelet Morphology Comment ENLARGED Blood Urea Nitrogen 23 MG/DL 23 MG/DL Creatinine 1.12 MG/DL 1.13 MG/DL Random Glucose 111 MG/DL 102 MG/DL Calcium Level 7.8 MG/DL 7.4 MG/DL Sodium Level 144 MEQ/L 146 MEQ/L Potassium Level 4.2 MEQ/L 3.9 MEQ/L Chloride Level 112 MEQ/L 115 MEQ/L Carbon Dioxide Level 24.2 MEQ/L 23.1 MEQ/L Anion Gap 8 MEQ/L 8 MEQ/L Estimat Glomerular Filtration Rate 62 ML/MIN 61 ML/MIN Total Protein 5.4 GM/DL Albumin 2.5 GM/DL Alkaline Phosphatase 85 U/L Aspartate Amino Transf (AST/SGOT) 13 U/L Alanine Aminotransferase (ALT/SGPT) 8 U/L Total Bilirubin 0.5 MG/DL Protein Corrected Calcium 8.3 MG/DL (Kiran Alaniz) Medical Decision Making Impression and Plan Impression: S/P fall Traumatic brain injury Left-sided facial fractures The patient continues to do well today and remains neurologically stable. Reviewed labs for today. Interval worsening of anaemia. Interval improvement of thrombocytopenia. Sodium level 146. Decreased but essentially stable eGFR. CT brain demonstrated stable haemorrahges w/o any mass effect or new haemorrhage noted. Physical Therapy recommends Home Health Care for further therapy and a wheeled walker. Plan: Primary management per Trauma. Neuro checks. Stat CT brain for any decline in neuro status. Monitor sodium level. Mechanical DVT prophylaxis. Hold pharmacologic DVT prophylaxis. Stress ulcer prophylaxis. From Neurosurgery's perspective the patient may transfer to a regular med/surg floor. (Kiran Alaniz) Attending Statement The exam, history, and the medical decision-making described in the above note were completed with the assistance of the mid-level provider. I reviewed and agree with the findings presented. I attest that I had a [id number] encounter with the patient on the same day, and personally performed and documented my assessment and findings in the medical record. On my examination 06/14/17 patient remains awake and alert Speech is clear Recently oriented for his age Moves all extremities well to command Extraocular movements intact Visual ortega intact Facial motor movement symmetric Moves all extremities well with good strength Imaging studies been stable Stable for floor No neurosurgical intervention anticipated at this point Discussed with cardiology. Plan to remain off of anticoagulation for 3-4 weeks. (Jaylen Novak MD) Kiran Alaniz Jun 14, 2017 12:21 Jaylen Novak MD Jun 14, 2017 20:08
--- NOTE | 2017-06-14 14:53 | HHI.CCPN ---
Subjective Brief History This 87-year-old gentleman who is awake and alert apparently tripped and fell on his porch striking his face on the ground. He denies losing consciousness, remembers the accident. He was transferred to [facility] around 05:00 p.m. He was worked up there, was found to have orbital fracture and intracranial hemorrhage. We were asked by that hospital to accept the patient which was readily done. The request, however, was made late, about 10 o'clock in the evening. I do not know what they did for five [address] scan reveals some interparenchymal hemorrhage the patient is awake alert and neurologically fully intact In addition he has a tripod fracture on the left with swelling of the face 24 Hour Review/Hospital Course 06/12/17 Patient been stable since the arrival He is neurologically fully intact There is no injury to the eye other than some bleeding around the sclera and patient has preserved vision Oral maxillofacial surgery has evaluated the patient and deemed this not to be an operative fracture Neurosurgery consult is greatly appreciated in patient with we will watch carefully Hemodynamically stable Last year patient had 2 cardiac stents placed. I do not know if these a bare metal stents are drug-eluting stents. He is on Plavix and aspirin Current the requirement is that patients with bare metal stents remain on Plavix and aspirin for at least 6 weeks after the procedure and those with the drug-eluting stents for about a year or longer At this point patient is off Plavix and aspirin the face of his intracranial bleed and we have to make certain compromise on this with risk versus benefit from intracranial hemorrhage versus cardiac event And is below point I believe the best way to go is to leave patient off Plavix for about 48-72 hours and then restarted provided that the intracranial hemorrhage is shrinking and improving Abdomen is soft patient's tolerating diet After the CT scan of the brain is repeated will probably transfer patient to the floor provided there is no surprise there 06/13/17 Patient doing well at this time He is awake alert and oriented Swelling and bruising of the left side of face is slowly decreasing. Patient able to open left eye and according to him vision is not impaired Neurologically fully intact Repeat CT scan of the brain reveals some extra cerebral blood right and left subdural Hemodynamically stable Patient has a as above noted drug eluding stents but has been on Plavix and aspirin for year and I agree fully with consultation of dialysis social worker Dr. Solis the patient does not require anymore Plavix or aspirin When everything is done and over with, he should be probably placed on back on aspirin for other cardiac reasons like precaution and prevention but he will not need Plavix Dr. Solis's consult is greatly appreciated Abdomen soft active bowel sounds Extremities well-perfused Patient to be transferred to floor today 06/14/17 Patient doing well Neurologically fully intact Does not require ICU care but no beds available on the floor any is awaiting transfer Nothing to add to care at this time Objective Vital Signs Date Time Temp Pulse Resp B/P (MAP) Pulse Ox O2 Delivery O2 Flow Rate FiO2 06/14/17 12:00 97.1 79 29 111/62 (78) 98 06/14/17 07:00 Room Air Intake and Output 06/14/17 06/14/17 06/15/17 08:00 16:00 00:00 Intake Total 545 ml Output Total 350 ml Balance 195 ml Result Diagram: 06/14/17 0329 06/14/17 0329 Urbano Mosqueda MD Jun 14, 2017 14:53
--- NOTE | 2017-06-14 19:35 | PD.CARD.PN ---
Subjective Subjective Remarks No angina or CHF. Feels better. Objective Medications Current Medications Medications (Trade) Dose Ordered Sig/Lan Route Start Time Stop Time Status Last Admin (NS Flush) 2 ml UNSCH PRN IV FLUSH 06/12/17 02:30 (NS Flush) 2 ml BID IV FLUSH 06/12/17 09:00 06/14/17 09:00 (Zofran Inj) 4 mg Q6H PRN IV PUSH 06/12/17 02:30 06/13/17 15:49 (Protonix) 40 mg Q24H PO 06/12/17 06:00 06/14/17 06:00 (Colace) 100 mg BID PO 06/12/17 09:00 06/14/17 10:56 (Percocet 5-325 Mg) 1 tab Q6H PRN PO 06/12/17 02:30 06/13/17 08:19 (Narcan Inj) 0.4 mg UNSCH PRN IV PUSH 06/12/17 02:30 (Zyloprim) 100 mg DAILY PO 06/12/17 09:00 06/14/17 10:56 (Synthroid) 25 mcg DAILY@0700 PO 06/12/17 07:00 06/14/17 06:02 (Flomax) 0.4 mg HS PO 06/12/17 21:00 06/13/17 20:42 (Pravachol) 80 mg HS PO 06/12/17 21:00 06/13/17 20:41 (Tylenol) 650 mg Q4H PRN PO 06/12/17 13:00 (Milk Of Magnesia Liq) 30 ml BID PO 06/13/17 09:00 (Keppra Liq) 500 mg Q12HR NG 06/13/17 10:00 06/14/17 10:56 Sodium Chloride 1,000 ml @ 40 mls/hr Q24H IV 06/13/17 10:00 06/14/17 10:56 (Lactulose Liq) 30 ml DAILY PO 06/14/17 09:00 Vital Signs / I&O Vital Signs Date Time Temp Pulse Resp B/P (MAP) Pulse Ox O2 Delivery O2 Flow Rate FiO2 06/14/17 16:00 70 06/14/17 16:00 98.5 70 26 130/64 (86) 99 06/14/17 12:00 97.1 79 29 111/62 (78) 98 06/14/17 12:00 79 06/14/17 08:00 79 06/14/17 08:00 97.4 72 18 117/62 (80) 97 06/14/17 07:00 Room Air 06/14/17 06:00 74 06/14/17 04:00 98.0 74 15 115/59 (77) 100 06/14/17 04:00 74 06/14/17 02:00 76 06/14/17 00:00 70 06/14/17 00:00 97.8 70 24 106/58 (74) 100 06/13/17 22:00 68 06/13/17 20:00 68 06/13/17 20:00 97.8 68 16 116/73 (87) 100 I/O 06/13/17 06/13/17 06/13/17 06/14/17 06/14/17 06/14/17 07:00 15:00 23:00 07:00 15:00 23:00 Intake Total 0 ml 570 ml 545 ml Output Total 200 ml 350 ml 100 ml Balance 0 ml 370 ml 195 ml -100 ml Intake Oral 0 ml 100 ml 100 ml IV Total 470 ml 445 ml Output Urine Total 200 ml 350 ml 100 ml # Voids 0 4 2 # Bowel Movements 0 0 Physical Exam GENERAL: In NAD. SKIN: Warm and dry. HEAD: Normocephalic, left facial bruising and edema. EYES: No scleral icterus. No injection or drainage. NECK: Supple, trachea midline. No JVD or lymphadenopathy. CARDIOVASCULAR: Irregular rate and rhythm, without murmurs, gallops, or rubs. RESPIRATORY: Breath sounds equal bilaterally. No accessory muscle use. GASTROINTESTINAL: Abdomen soft, non-tender, nondistended. MUSCULOSKELETAL: No cyanosis, or edema. Laboratory Laboratory Tests Test 06/14/17 03:29 White Blood Count 9.5 TH/MM3 Red Blood Count 2.69 MIL/MM3 Hemoglobin 9.0 GM/DL Hematocrit 26.5 % Mean Corpuscular Volume 98.4 FL Mean Corpuscular Hemoglobin 33.6 PG Mean Corpuscular Hemoglobin Concent 34.2 % Red Cell Distribution Width 15.6 % Platelet Count 125 TH/MM3 Mean Platelet Volume 8.0 FL Neutrophils (%) (Auto) 77.9 % Lymphocytes (%) (Auto) 11.3 % Monocytes (%) (Auto) 9.3 % Eosinophils (%) (Auto) 0.9 % Basophils (%) (Auto) 0.6 % Neutrophils # (Auto) 7.4 TH/MM3 Lymphocytes # (Auto) 1.1 TH/MM3 Monocytes # (Auto) 0.9 TH/MM3 Eosinophils # (Auto) 0.1 TH/MM3 Basophils # (Auto) 0.1 TH/MM3 CBC Comment DIFF FINAL Differential Comment Blood Urea Nitrogen 23 MG/DL Creatinine 1.13 MG/DL Random Glucose 102 MG/DL Total Protein 5.4 GM/DL Albumin 2.5 GM/DL Calcium Level 7.4 MG/DL Alkaline Phosphatase 85 U/L Aspartate Amino Transf (AST/SGOT) 13 U/L Alanine Aminotransferase (ALT/SGPT) 8 U/L Total Bilirubin 0.5 MG/DL Sodium Level 146 MEQ/L Potassium Level 3.9 MEQ/L Chloride Level 115 MEQ/L Carbon Dioxide Level 23.1 MEQ/L Anion Gap 8 MEQ/L Estimat Glomerular Filtration Rate 61 ML/MIN Protein Corrected Calcium 8.3 MG/DL Assessment and Plan Problem List: (1) Intracranial hemorrhage ICD Codes: I62.9 - Nontraumatic intracranial hemorrhage, unspecified Status: Acute (2) CAD (coronary artery disease) ICD Codes: I25.10 - Atherosclerotic heart disease of [place] coronary artery without angina pectoris (3) Stented coronary artery ICD Codes: Z95.5 - Presence of coronary angioplasty implant and graft (4) Atrial fibrillation ICD Codes: I48.91 - Unspecified atrial fibrillation (5) Left orbit fracture ICD Codes: S02.82XA - Fracture of other specified skull and facial bones, left side, initial encounter for closed fracture Status: Acute Assessment and Plan No angina or CHF. Remains stable from cardiac standpoint, Stay off anticoagulation for now. He will need anticoag for AF w NOAC in 2-3 weeks. F/u w Dr. Kumar krishna. Felicia Loza MD Jun 14, 2017 19:35
[2017-06-14] MEDS: TAMSULOSIN HCL 0.4 MG CAP PO SCH (20:36)
[2017-06-14] MEDS: PRAVASTATIN SOD 40 MG TAB PO SCH (20:37)
[2017-06-15] VITALS (9 sets, daily range): BP systolic 102–137; BP diastolic 55–68; PULSE 68–79; RESP 18–20; TEMP 97.7–98.2; O2SAT 93–100
[2017-06-15] MEDS: LEVOTHYROXINE SODIUM 25 MCG TAB PO SCH (05:44)
[2017-06-15] MEDS: PANTOPRAZOLE SOD 40 MG DELAYED RELEASE TAB PO SCH (05:44)
--- NOTE | 2017-06-15 08:13 | HHI.NSPN ---
(Frank Augustin) History Chief Complaint: None. Left frontal ICH. (Frank Augustin) Interval History 06/11: Trauma - This 87-year-old gentleman who is awake and alert apparently tripped and fell on his porch striking his face on the ground. He denies losing consciousness, remembers the accident. He was transferred to [facility] around 05:00 p.m. He was worked up there, was found to have orbital fracture and intracranial hemorrhage. We were asked by that hospital to accept the patient which was readily done. 06/12. Evaluated by Dr Novak. Physical Therapy evaluated the patient and recommended Home Health for further therapy and a wheeled walker. Repeat CT brain demonstrated slight increase in the left frontal lobe parenchymal haemorrhage with edema and minimal mass effect. 06/13: When seen the patient is awake and alert this morning and moving all extremities spontaneously. He readily interacts. His muscle strength is good and sensation is intact. He denies any headache or dizziness. He does have some pain to the face. Nursing reports that the patient is doing well and neurologically stable and that Trauma would like to transfer the patient to a regular med/surg floor. 06/14: This morning the patient is awake and sitting in the chair watching TV and visiting with his . He had no complaints. He denied any headache or dizziness. He is essentially stable neurologically. His did say he had dementia prior to his admission. 06/15: Patient awakens to voice. Denies any headaches. No nausea vomiting. No chest pain, shortness of breath, or abdominal pain. (Frank Augustin) Review of Systems General: Negative for: fever, chills, insomnia Respiratory: Negative for: shortness of breath, cough, sputum Cardiovascular: Negative for: chest pain Gastrointestinal: Negative for: nausea, vomitting, diarrhea, constipation ( Frank Augustin) Exam Results Vital Signs Date Time Temp Pulse Resp B/P (MAP) Pulse Ox O2 Delivery O2 Flow Rate FiO2 06/15/17 04:45 97.9 69 20 106/55 (72) 98 06/14/17 20:00 Room Air Intake and Output 06/15/17 06/15/17 06/16/17 08:00 16:00 00:00 Intake Total 240 ml Output Total 200 ml Balance 40 ml (Frank Augustin) Physical Examination GENERAL: Patient resting comfortably in bed in no acute distress and opens eyes easily to voice. HEENT: Left-sided facial swelling & ecchymosis w/lateral orbit skin avulsion and small supraorbital laceration with sutures in place. PERRLA 2 mm brisk. RESP: CTA Bilaterally HEART: NSR no murmurs ABD: Soft positive bs. SKIN: Left face and neck extensive ecchymosis. Laceration left eyebrow area with sutures in place clean and dry. MUSCULOSKELETAL: SAINZ extremities spontaneously and to command., no evident clubbing or deformity. Dressings to bilateral forearms intact. NEUROLOGICAL: Awake & alert. Follows commands well. Answers questions appropriately. CN II-XII appear grossly intact. Sensation intact to light touch to all extremities. (Frank Augustin) Lab, Micro, Other Results Last Impressions Head CT 06/13/17 1017 Signed Impressions: Service Date/Time: May 11:12 - CONCLUSION: 1. Stable exam with areas of intraparenchymal, subarachnoid, and subdural hemorrhage. No new source of hemorrhage. No mass effect. Jose Keane Jr., MD Chest X-Ray 06/12/17 0000 Signed Impressions: Service Date/Time: Monday, June 12, 2017 10:19 - CONCLUSION: 1. Bibasilar densities likely small pleural effusions and adjacent atelectasis. Frank Hernandez MD (Frank Augustin) Medical Decision Making Impression and Plan Impression: S/P fall Traumatic brain injury Left-sided facial fractures CT brain demonstrated stable haemorrahges w/o any mass effect or new haemorrhage noted. Physical Therapy recommends Home Health Care for further therapy and a wheeled walker. Plan: Continue with neuro checks Continue with medical management. Monitor sodium level. Mechanical DVT prophylaxis. Hold pharmacologic DVT prophylaxis. Stress ulcer prophylaxis. From Neurosurgery's perspective the patient may transfer to a regular med/surg floor. (Piazza,Frank S. PA) Attending Statement The exam, history, and the medical decision-making described in the above note were completed with the assistance of the mid-level provider. I reviewed and agree with the findings presented. I attest that I had a [id number] encounter with the patient on the same day, and personally performed and documented my assessment and findings in the medical record. Stable exam and follow-up imaging study. Plan on transfer to the neuro floor and rehabilitation placement. Updated at bedside who had multiple questions. (Arturo Gillette MD) Frank Augustin Jun 15, 2017 08:13 Arturo Gillette MD Jun 15, 2017 11:18
[2017-06-15] MEDS: ALLOPURINOL 100 MG TAB PO SCH (09:00)
[2017-06-15] MEDS: LACTULOSE SYRUP 20 GM/30 ML CUP PO SCH (09:31)
[2017-06-15] MEDS: levETIRAcetam 500 MG/5 ML UDC NG SCH ×2 (09:32→20:36)
[2017-06-15] MEDS: MAGNESIUM HYDROXIDE SUSP 30 ML CUP PO SCH ×2 (09:32→20:36)
[2017-06-15] MEDS: DOCUSATE SODIUM 100 MG CAP PO SCH ×2 (09:33→20:36)
[2017-06-15] MEDS: SODIUM CHLORIDE 0.9% FLUSH 10 ML FLUSH IV FLUSH SCH ×2 (09:44→20:36)
[2017-06-15] MEDS: SODIUM CHLOR 0.9% 1000 ML INJ 1,000 ML IV SCH (10:00)
[2017-06-15] MEDS ORDERED: TYLE325T PO (10:37)
--- NOTE | 2017-06-15 16:58 | PD.CARD.PN ---
Subjective Subjective Remarks No CP or SOB, no c/o Objective Medications Current Medications Medications (Trade) Dose Ordered Sig/Lan Route Start Time Stop Time Status Last Admin (NS Flush) 2 ml UNSCH PRN IV FLUSH 06/12/17 02:30 (NS Flush) 2 ml BID IV FLUSH 06/12/17 09:00 06/15/17 09:44 (Zofran Inj) 4 mg Q6H PRN IV PUSH 06/12/17 02:30 06/13/17 15:49 (Protonix) 40 mg Q24H PO 06/12/17 06:00 06/15/17 05:44 (Colace) 100 mg BID PO 06/12/17 09:00 06/15/17 09:33 (Percocet 5-325 Mg) 1 tab Q6H PRN PO 06/12/17 02:30 06/13/17 08:19 (Narcan Inj) 0.4 mg UNSCH PRN IV PUSH 06/12/17 02:30 (Zyloprim) 100 mg DAILY PO 06/12/17 09:00 06/14/17 10:56 (Synthroid) 25 mcg DAILY@0700 PO 06/12/17 07:00 06/15/17 05:44 (Flomax) 0.4 mg HS PO 06/12/17 21:00 06/14/17 20:36 (Pravachol) 80 mg HS PO 06/12/17 21:00 06/14/17 20:37 (Tylenol) 650 mg Q4H PRN PO 06/12/17 13:00 06/15/17 09:44 (Milk Of Magnesia Liq) 30 ml BID PO 06/13/17 09:00 06/15/17 09:32 (Keppra Liq) 500 mg Q12HR NG 06/13/17 10:00 06/15/17 09:32 Sodium Chloride 1,000 ml @ 40 mls/hr Q24H IV 06/13/17 10:00 06/14/17 10:56 (Lactulose Liq) 30 ml DAILY PO 06/14/17 09:00 06/15/17 09:31 Vital Signs / I&O Vital Signs Date Time Temp Pulse Resp B/P (MAP) Pulse Ox O2 Delivery O2 Flow Rate FiO2 06/15/17 15:50 97.7 69 20 111/57 (75) 100 06/15/17 11:23 97.7 69 20 104/57 (73) 98 06/15/17 11:00 18 06/15/17 08:06 98.2 72 20 102/56 (71) 98 06/15/17 04:45 97.9 69 20 106/55 (72) 98 06/15/17 04:00 68 06/15/17 00:00 79 06/14/17 23:58 99.5 88 20 103/69 (80) 98 06/14/17 20:00 Room Air 06/14/17 20:00 97.6 72 20 107/55 (72) 99 06/14/17 20:00 77 I/O 06/14/17 06/14/17 06/14/17 06/15/17 06/15/17 06/15/17 07:00 15:00 23:00 07:00 15:00 23:00 Intake Total 545 ml 240 ml 720 ml Output Total 350 ml 100 ml 200 ml 425 ml Balance 195 ml -100 ml 40 ml 295 ml Intake Oral 100 ml 240 ml 720 ml IV Total 445 ml Output Urine Total 350 ml 100 ml 200 ml 425 ml # Voids 2 # Bowel Movements 0 0 Physical Exam GENERAL: In NAD. SKIN: Warm and dry. HEAD: Normocephalic, left facial bruising and edema. EYES: No scleral icterus. No injection or drainage. NECK: Supple, trachea midline. No JVD or lymphadenopathy. CARDIOVASCULAR: Irregular rate and rhythm, without murmurs, gallops, or rubs. RESPIRATORY: Breath sounds equal bilaterally. No accessory muscle use. GASTROINTESTINAL: Abdomen soft, non-tender, nondistended. MUSCULOSKELETAL: No cyanosis, or edema. Assessment and Plan Problem List: (1) Intracranial hemorrhage ICD Codes: I62.9 - Nontraumatic intracranial hemorrhage, unspecified Status: Acute (2) CAD (coronary artery disease) ICD Codes: I25.10 - Atherosclerotic heart disease of [place] coronary artery without angina pectoris (3) Stented coronary artery ICD Codes: Z95.5 - Presence of coronary angioplasty implant and graft (4) Atrial fibrillation ICD Codes: I48.91 - Unspecified atrial fibrillation (5) Left orbit fracture ICD Codes: S02.82XA - Fracture of other specified skull and facial bones, left side, initial encounter for closed fracture Status: Acute Assessment and Plan No new cardiac issues. No angina or CHF. Remains stable from cardiac standpoint , Stay off anticoagulation for now. He will need anticoag for AF w NOAC in 2-3 weeks (d/w NS). 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 Problem Qualifiers (1) Atrial fibrillation: Qualified Codes: I48.2 - Chronic atrial fibrillation (2) Left orbit fracture: Qualified Codes: S02.82XA - Fracture of other specified skull and facial bones , left side, initial encounter for closed fracture Felicia Loza MD Jun 15, 2017 16:58
[2017-06-15] MEDS: PRAVASTATIN SOD 40 MG TAB PO SCH (20:36)
[2017-06-15] MEDS: TAMSULOSIN HCL 0.4 MG CAP PO SCH (20:36)
[2017-06-16] VITALS: BP 105/55; PULSE 81; RESP 18; TEMP 98; O2SAT 97
[2017-06-16 04:00] VITALS: BP 118/58; PULSE 70; PULSE 76; RESP 18; TEMP 97.1; O2SAT 97
[2017-06-16] MEDS: PANTOPRAZOLE SOD 40 MG DELAYED RELEASE TAB PO SCH (05:56)
[2017-06-16] MEDS: LEVOTHYROXINE SODIUM 25 MCG TAB PO SCH (05:56)
[2017-06-16 08:00] VITALS: BP 118/56; PULSE 71; RESP 20; TEMP 98; O2SAT 97
[2017-06-16] MEDS: ALLOPURINOL 100 MG TAB PO SCH (08:15)
[2017-06-16] MEDS: levETIRAcetam 500 MG/5 ML UDC NG SCH (08:15)
[2017-06-16] MEDS: SODIUM CHLORIDE 0.9% FLUSH 10 ML FLUSH IV FLUSH SCH (08:15)
[2017-06-16] MEDS: DOCUSATE SODIUM 100 MG CAP PO SCH (08:15)
--- NOTE | 2017-06-16 08:40 | HHI.NSPN ---
(Frank Augustin) History Chief Complaint: None. Left frontal ICH. (Frank Augustin) Interval History 06/11: Trauma - This 87-year-old gentleman who is awake and alert apparently tripped and fell on his porch striking his face on the ground. He denies losing consciousness, remembers the accident. He was transferred to [facility] around 05:00 p.m. He was worked up there, was found to have orbital fracture and intracranial hemorrhage. We were asked by that hospital to accept the patient which was readily done. 06/12. Evaluated by Dr Novak. Physical Therapy evaluated the patient and recommended Home Health for further therapy and a wheeled walker. Repeat CT brain demonstrated slight increase in the left frontal lobe parenchymal haemorrhage with edema and minimal mass effect. 06/13: When seen the patient is awake and alert this morning and moving all extremities spontaneously. He readily interacts. His muscle strength is good and sensation is intact. He denies any headache or dizziness. He does have some pain to the face. Nursing reports that the patient is doing well and neurologically stable and that Trauma would like to transfer the patient to a regular med/surg floor. 06/14: This morning the patient is awake and sitting in the chair watching TV and visiting with his . He had no complaints. He denied any headache or dizziness. He is essentially stable neurologically. His did say he had dementia prior to his admission. 06/15: Patient awakens to voice. Denies any headaches. No nausea vomiting. No chest pain, shortness of breath, or abdominal pain. 06/16: Patient awakens easily to voice. Denies any headaches, nausea, vomiting , paresthesias, or muscle weakness. Patient states he has not have any complaints status post fall with left frontal intracranial hemorrhage. (Frank Augustin) Review of Systems General: Negative for: fever, chills, insomnia Respiratory: Negative for: shortness of breath, cough, sputum Cardiovascular: Negative for: chest pain Gastrointestinal: Negative for: nausea, vomitting, diarrhea, constipation ( Frank Augustin) Exam Results Vital Signs Date Time Temp Pulse Resp B/P (MAP) Pulse Ox O2 Delivery O2 Flow Rate FiO2 06/16/17 08:00 98.0 71 20 118/56 (76) 97 06/15/17 20:00 Room Air Intake and Output 06/16/17 06/16/17 06/17/17 08:00 16:00 00:00 Intake Total 120 ml Balance 120 ml (Frank Augustin) Physical Examination GENERAL: Patient resting comfortably in bed in no acute distress and opens eyes easily to voice. HEENT: Left-sided facial swelling & ecchymosis w/lateral orbit skin avulsion and small supraorbital laceration with sutures in place. PERRLA 2 mm brisk. RESP: CTA Bilaterally HEART: NSR no murmurs ABD: Soft positive bs. SKIN: Left face and neck extensive ecchymosis. Laceration left eyebrow area with sutures in place clean and dry. MUSCULOSKELETAL: SAINZ extremities spontaneously and to command., no evident clubbing or deformity. Dressings to bilateral forearms intact. NEUROLOGICAL: Awakens easily to voice pupils 2 mm bilaterally reactive bilaterally.. Follows commands well. Answers questions appropriately. Sensation intact to light touch to all extremities. (Frank Augustin) Lab, Micro, Other Results Last Impressions Head CT 06/13/17 1017 Signed Impressions: Service Date/Time: May 11:12 - CONCLUSION: 1. Stable exam with areas of intraparenchymal, subarachnoid, and subdural hemorrhage. No new source of hemorrhage. No mass effect. Jose Keane Jr., MD Chest X-Ray 06/12/17 0000 Signed Impressions: Service Date/Time: Monday, June 12, 2017 10:19 - CONCLUSION: 1. Bibasilar densities likely small pleural effusions and adjacent atelectasis. Frank Hernandez MD (Frank Augustin) Medical Decision Making Impression and Plan Impression: S/P fall Traumatic brain injury Left-sided facial fractures CT brain demonstrated stable haemorrahges w/o any mass effect or new haemorrhage noted. Physical Therapy recommends Home Health Care for further therapy and a wheeled walker. Plan: Continue with neuro checks Continue with medical management. Monitor sodium level. Mechanical DVT prophylaxis. Hold pharmacologic DVT prophylaxis. Stress ulcer prophylaxis. From Neurosurgery's perspective the patient may transfer to a regular med/surg floor. (Frank Augustin) Attending Statement The exam, history, and the medical decision-making described in the above note were completed with the assistance of the mid-level provider. I reviewed and agree with the findings presented. I attest that I had a [id number] encounter with the patient on the same day, and personally performed and documented my assessment and findings in the medical record. Stable examination. Patient scheduled to be transferred to inpatient rehabilitation today. (Arturo Gillette MD) Frank Augustin Jun 16, 2017 08:40 Arturo Gillette MD Jun 16, 2017 12:21
[2017-06-16] MEDS: LACTULOSE SYRUP 20 GM/30 ML CUP PO SCH (09:00)
[2017-06-16] MEDS: MAGNESIUM HYDROXIDE SUSP 30 ML CUP PO SCH (09:00)
--- NOTE | 2017-06-16 14:09 | HHI.DS ---
Discharge Summary Admission Date Jun 11, 2017 at 22:02 Discharge Date: Jun 16, 2017 Admitting Diagnosis Intracranial hemorrhage, left orbital fx s/p fall (1) Left orbit fracture ICD Codes: S02.82XA - Fracture of other specified skull and facial bones, left side, initial encounter for closed fracture (2) Subarachnoid hemorrhage ICD Codes: I60.9 - Nontraumatic subarachnoid hemorrhage, unspecified (3) Intraparenchymal hemorrhage of brain ICD Codes: I61.9 - Nontraumatic intracerebral hemorrhage, unspecified (4) Fall, initial encounter ICD Codes: W19.XXXA - Unspecified fall, initial encounter Diagnosis: Principal Brief History S/P Trauma: Fall CBC/BMP: 06/14/17 0329 06/14/17 0329 Significant Findings Laboratory Tests Test 06/14/17 03:29 Red Blood Count 2.69 MIL/MM3 (4.50-5.90) Hemoglobin 9.0 GM/DL (13.0-17.0) Hematocrit 26.5 % (39.0-51.0) Platelet Count 125 TH/MM3 (150-450) Neutrophils (%) (Auto) 77.9 % (16.0-70.0) Monocytes (%) (Auto) 9.3 % (0.0-8.0) Blood Urea Nitrogen 23 MG/DL (7-18) Total Protein 5.4 GM/DL (6.4-8.2) Albumin 2.5 GM/DL (3.4-5.0) Calcium Level 7.4 MG/DL (8.5-10.1) Aspartate Amino Transf (AST/SGOT) 13 U/L (15-37) Alanine Aminotransferase (ALT/SGPT) 8 U/L (12-78) Sodium Level 146 MEQ/L (136-145) Chloride Level 115 MEQ/L (98-107) Estimat Glomerular Filtration Rate 61 ML/MIN (>89) Protein Corrected Calcium 8.3 MG/DL (8.5-10.1) Imaging Last Impressions Head CT 06/13/17 1017 Signed Impressions: Service Date/Time: May 11:12 - CONCLUSION: 1. Stable exam with areas of intraparenchymal, subarachnoid, and subdural hemorrhage. No new source of hemorrhage. No mass effect. Jose Keane Jr., MD Chest X-Ray 06/12/17 0000 Signed Impressions: Service Date/Time: Monday, June 12, 2017 10:19 - CONCLUSION: 1. Bibasilar densities likely small pleural effusions and adjacent atelectasis. Frank Hernandez MD PE at Discharge GENERAL: 87 year old male lying in bed. SKIN: Warm and dry. LEFT facial ecchymosis and edema noted. Dressing to left eye C/D/I. EYES: Pupils equal and round. No scleral icterus. No injection or drainage. ENT: No nasal bleeding or discharge. Mucous membranes pink and moist. NECK: Trachea midline. No JVD. CARDIOVASCULAR: Controlled Afib. RESPIRATORY: No accessory muscle use. Clear to auscultation. Breath sounds equal bilaterally. GASTROINTESTINAL: Abdomen soft, non-tender, nondistended. + BS MUSCULOSKELETAL: Extremities without clubbing, cyanosis, or edema. No obvious deformities. NEUROLOGICAL: Awake and alert. Normal speech. Hospital Course [place]: Fell from the standing position striking his face on a hard object. No LOC. Transferred for Trauma services. On ASA and Plavix at home for CAD. INJURIES: SAH IPH within the LEFT frontal lobe LEFT orbital fx (non-op) PMHx: HLD, hypothyroidism, Gout, BPH, CAD with 4 stents in the past, Thoracic aortic aneurysm, recurrent abdominal aortic aneurysm SAH, IPH Neurosurgery consulted Supportive care PO Keppra No seizure activity noted 06/13: Repeat CT Brain- stable F/U outpatient LEFT orbital fx OMFS consulted Non operative management SINUS precautions Leave dentures out Mechanical soft diet F/U outpatient CAD with stent placement x 4, Afib Cardiology consulted- recommends staying off Plavix and switching to another anticoagulant at a later date for his Afib 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 Patient is clear from Trauma surgery standpoint to safely discharge to inpatient rehab. Pt Condition on Discharge: Stable Discharge Disposition: Discharge to SNF Discharge Instructions DIET: Follow Instructions for: As Tolerated, No Restrictions Speech Therapy-Diet Recommends: Mechanical Soft Additional Diet Instructions: Keep dentures out of mouth. Activities you can perform: Weight Bearing as [place] Activities to Avoid: Concussion Sports, Strenuous Activity Other Activity Instructions: SINUS precautions: No nose blowing, no closed mouth sneezing, no drinking with a straw. Keep dentures out of mouth. Grecia Martínez Jun 16, 2017 14:08
--- NOTE | 2017-06-17 08:07 | PD.NP.DS ---
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 The patient fell at his home , and reported no LOC. Additional injuries included fractured orbit and ICH. Ths patient has a history of CAD, and hypothyroidism. He was GCS of 15 on admission. He is referred for baseline neurobehavioral status examination per trauma protocol to assess cognitive, behavioral and emotional aspects of the injury and to provide treatment recommendations. He progressed well and was discharged home on day 5. Past Medical History: Please refer to the patient's history and physical for information concerning the patient's past medical, surgical, and psychiatric histories. Education/Learning Hx: The patient completed six years of education. There is no report of learning difficulties, grade repetitions or behavioral difficulties. 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 The patient is . The patient lives in [place], [place]. Premorbid Cognitive, Emotional and Behavioral Status: Stable. The patient has six years of education and a solid work history prior to this injury. The patient has no prior psychiatric difficulties, as described above. However, there is a concern about an underlying neurocognitive disorder predating his injury. Substance abuse history is unremarkable. Behavioral Reactions of Patient and Family/Support System: Stable. The patient s family is experiencing ongoing issues of adjustment given the nature of the injury, and this aspect of recovery will require ongoing monitoring. Emotional/Behavioral Status of Patient and Family/Support System: Stable. Pertinent issues, if appropriate to this patients clinical care, are described in detail above. Treatment Interventions: During the course of their acute care stay, this patient and their family/ support system were provided information concerning the neuropsychological aspects of the injury, education regarding course of recovery, and psychological support in the form of counseling with the person served and the family/support system as documented in the neuropsychology service progress notes, as deemed clinically appropriate. Current, Cognitive, Emotional and Behavioral Status: Stable. This patient has experienced a severe injury, and will be adjusting to significant cognitive , emotional and behavioral challenges going forward. Impression at Discharge: The cognitive and behavioral status of this patient meets criteria for [place] Level . 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 Status of Family/Support System Adjustment: Stable. The patients family/ support system will experience ongoing issues of adjustment given the nature of the injury, and this aspect of the patients recovery will require ongoing monitoring. Post Acute Recommendations: It is recommended that the patient continue to be monitored for behavioral impulsivity as they continue to be early in their course of recovery. This patients neuropathological challenges may limit their reintegration into work and family life going forward, and these challenges may require specialized therapeutic skills to maximize outcome. Thank you for the opportunity to assist in this patients care. Greg Funk, Ph.D., ABPP Board Certified in Clinical Neuropsychology [place] [employer] [place] Licensed Psychologist #[id number] Greg Funk PhD Jun 17, 2017 08:07
== END 2017-06-16 11:13 | DRG 84 ==
LOC: NEPE 21:36 → NEDA 22:02 → N03B 23:10 → N03A 23:31 → N03B 06-14 19:09
PROVIDERS: ADMIT Surgery; ATTEND Surgery
DX: S06.359A Traumatic hemorrhage of left cerebrum with loss of consciousness of unspecified duration, initial encounter (principal); D69.6 Thrombocytopenia, unspecified; I48.2 Chronic atrial fibrillation; D64.9 Anemia, unspecified; S02.82XA Fracture of other specified skull and facial bones, left side, initial encounter for closed fracture; E03.9 Hypothyroidism, unspecified; I25.10 Atherosclerotic heart disease of native coronary artery without angina pectoris; W01.198A Fall on same level from slipping, tripping and stumbling with subsequent striking against other object, initial encounter; Y92.008 Other place in unspecified non-institutional (private) residence as the place of occurrence of the external cause; Z95.5 Presence of coronary angioplasty implant and graft; E78.5 Hyperlipidemia, unspecified; M10.9 Gout, unspecified; Z79.02 Long term (current) use of antithrombotics/antiplatelets; Z79.82 Long term (current) use of aspirin; H11.32 Conjunctival hemorrhage, left eye; R40.2412 Glasgow coma scale score 13-15, at arrival to emergency department; Z87.891 Personal history of nicotine dependence
CPT/HCPCS: 70450; 71045; 80048; 80053; 85025; 87641; 93005; 94150; A0431-QM-SH; A0436-QM-SH; J2405; J7030